=== PATIENT | female | born 1930 | race Caucasian/White ===

== ENCOUNTER 2016-10-13 17:41 | Inpatient (IN) | payer MEDICARE, BC ==
[2016-10-13] VITALS (13 sets, daily range): BP systolic 101–178; BP diastolic 53–124
[~2016-10-13] VITALS: Ht 152.4 cm; Wt 53.5 kg
[2016-10-13] MEDS ORDERED: IV SET PRIMARY 1 EA INFUS.SET MC ONE (17:47)
[2016-10-13] MEDS ORDERED: IV NS 0.9% 1,000 ML ONE ×2 (17:47→19:30)
--- NOTE | 2016-10-13 17:51 | NUR ---
DR. CARDOZA AT BEDSIDE FOR RAPID SEQUENCE INTUBATION WITH MONO FRASER
--- NOTE | 2016-10-13 17:52 | NUR ---
VERBAL ORDER FROM DR. CARDOZA FOR ETOMIDATE 20MG TO L WRIST G 22 FOR RSI VERBAL ORDER FROM DR. CARDOZA FOR ROCURONIUM 60MG TO L WRIST G 22 FOR RSI
--- NOTE | 2016-10-13 17:52 | NUR ---
PT INTUBATED BY DR. CARDOZA WITH 7.5ET TUBE AT 22CM LIP LINE POSITIVE CO2 COLOR CHANGE NOTED WITH BILATERAL BREATH SOUNDS RT TO PLACE PATIENT ON VENT WITH SETTINGS FOLLOWS: A/C: 20 TV: 500 PEEP:5 FIO2:100%
[2016-10-13] MEDS ORDERED: PROPOFOL 100 ML IV ONE (17:55)
[2016-10-13] MEDS ORDERED: IV SET PRIMARY PUMP SET 1 EA INFUS.SET MC ONE (17:55)
[2016-10-13] MEDS ORDERED: ALBUTEROL FS 2.5 MG/0.5 ML VIAL.NEB NEB ONE (18:00)
[2016-10-13] MEDS ORDERED: IPRATROPIUM NEB FS 0.5 MG/2.5 ML AMPUL.NEB NEB ONE (18:00)
--- NOTE | 2016-10-13 18:00 | NUR ---
CALLED [facility], ASKED THEM TO GIVE MEDLIST, CHANTELL (MED REC NURSE)GETTING MEDS FROM NURSE
[2016-10-13 18:09] LABS: BASOPHILS # (AUTO) 0.3 /CMM (0.0-0.2); BASOPHILS % (AUTO) 1.6 % (0.0-2.0); EOSINOPHILS # (AUTO) 0.8 /CMM (0.0-0.7); EOSINOPHILS % (AUTO) 4.8 % (0.0-6.0); HEMATOCRIT 41 % (33-45); HEMOGLOBIN 13.1 g/dL (11.5-14.8); LYMPHOCYTES # (AUTO) 3.7 /CMM (0.8-4.8); LYMPHOCYTES % (AUTO) 23.2 % (20.0-44.0); MEAN CORPUSCULAR HEMOGLOBIN 28 PG (26.0-33.0); MEAN CORPUSCULAR HGB CONC 32 g/dl (31.0-36.0); MEAN CORPUSCULAR VOLUME 88 fL (82-100); MONOCYTES # (AUTO) 1.3 /CMM (0.1-1.30); MONOCYTES % (AUTO) 8.5 % (2.0-12.0); NEUTROPHILS # (AUTO) 9.7 /CMM (1.8-8.9); NEUTROPHILS % (AUTO) 61.9 % (43.0-81.0); PLATELET COUNT (AUTO) 667 /CMM (150-450); RDW COEFFICIENT OF VARIATION 16.4 (11.5-15.0); RED BLOOD CELL COUNT(AUTO) 4.67 MIL/uL (4.0-5.2); WHITE BLOOD COUNT (AUTO) 15.8 K/uL (4.3-11.0)
--- NOTE | 2016-10-13 18:10 | NUR ---
RECEIVED VERBAL ORDERS FROM DR. CARDOZA TO START PT ON PROPOFOL.ORDERS CARRIED OUT STARTED AT 10MCG. VSS. WILL CLOSELY MONITOR.
[2016-10-13 18:14] LABS: CALCIUM, SERUM 9.4 mg/dL (8.5-10.1); CARBON DIOXIDE 13 mmol/L (21-32); CHLORIDE 104 mmol/L (98-107); CREATININE 1.5 mg/dL (0.6-1.3); GLUCOSE 165 mg/dL (74-106); POTASSIUM 4.3 mmol/L (3.5-5.1); SODIUM SERUM 138 mmol/L (136-145); UREA NITROGEN, BLOOD 18 mg/dL (7-18)
--- NOTE | 2016-10-13 18:16 | NUR ---
CALLED NURSING SUP. FOR ICU BED
[2016-10-13 18:18] LABS: INR 1.04 (0.87-1.13); PROTHROMBIN TIME 10.8 SECS (9.5-12.7)
[2016-10-13 18:20] LABS: ALANINE AMINOTRANSFERASE 64 U/L (12-78); ALBUMIN 2.3 g/dL (3.4-5.0); ALKALINE PHOSPHATASE 169 U/L (46-116); ASPARTATE AMINOTRANSFERASE 55 U/L (15-37); BILIRUBIN,DIRECT 0.1 mg/dL (0.0-0.2); BILIRUBIN,TOTAL 0.2 mg/dL (0.2-1.0); TOTAL PROTEIN, SERUM 7.1 g/dL (6.4-8.2)
[2016-10-13 18:22] LABS: TROPONIN I < 0.017 ng/mL (0.00-0.056)
--- NOTE | 2016-10-13 18:24 | NUR ---
RT ASSITED W/ DR CARDOZA TO ORALLY INTUBATE PT W/ 7.5 ETT MARKED 21 CM @ THE LIP. POSITIVE CO2 COLOR CHANGE. EQUAL BILATERAL B/S. PLACED ON VENT W/ NOTED SETTINGS BY DR BENJAMIN,ALARMS CHECKED AND AUDIBLE,VENT PLUGGED IN RED OUTLET. AMBU BAG HOB. ABG IN [address] CARDOZA. Addendum: 10/13/16 at 1826 by TR COHN RT Amended: Links added.
[2016-10-13] MEDS ORDERED: PIPERACILLIN /TAZOBACTAM 3.375 G in IV D5W 50 ML IV ONE (18:30)
[2016-10-13] MEDS ORDERED: VANCOMYCIN 1 GM in IV D5W 250 ML IV ONE ×2 (18:30→20:00)
--- NOTE | 2016-10-13 18:30 | NUR ---
UNABLE TO INSERT FC. DR. SONY SAM.
[2016-10-13 18:44] LABS: BAND % (MANUAL) 3 % (0.0-5.0); EOSINOPHILS % (MANUAL) 4 % (0-4); LACTIC ACID 11.9 mmol/L (0.4-2.0); LYMPHOCYTES % (MANUAL) 21 % (16-48); MONOCYTES % (MANUAL) 6 % (0-11.0); NEUTROPHILS % (MANUAL) 66 (42-76); PLATELET ESTIMATE INCREASED
--- NOTE | 2016-10-13 18:45 | NUR ---
RECEIVED VERBAL ORDERS FROM DR. CARDOZA TO DC PROPOFOL AND PLACED PT ON SOFT WRIST RESTRAINTS. ORDERS CARRIED OUT. SAFETY MEASURES PROVIDED. VSS. WILL MONITOR.
--- NOTE | 2016-10-13 19:06 | NUR ---
EPIC PAGED, DR.SIMONA Wynne BANKRUPTCY MANAGER
[2016-10-13] MEDS ORDERED: MAGN400O6 NG (19:15)
[2016-10-13] MEDS ORDERED: BISA10SU8 RC (19:15)
[2016-10-13] MEDS ORDERED: ATOR10TA NG (19:15)
[2016-10-13] MEDS ORDERED: CRAN3875 NG (19:15)
[2016-10-13] MEDS ORDERED: LEVO125T8 NG (19:15)
[2016-10-13] MEDS ORDERED: IPRA3AMP NEB (19:15)
[2016-10-13] MEDS ORDERED: CLOP75TA2 GT (19:15)
[2016-10-13] MEDS ORDERED: NA P133E RC (19:15)
[2016-10-13] MEDS ORDERED: CALC-108 NG (19:15)
[2016-10-13] MEDS ORDERED: ASPI81TA2 NG (19:15)
[2016-10-13] MEDS ORDERED: ACET-868 NG (19:15)
[2016-10-13] MEDS ORDERED: ZOLP5TAB2 NG (19:15)
[2016-10-13] MEDS ORDERED: AMOX200S6 NG (19:15)
--- NOTE | 2016-10-13 19:21 | NUR ---
REPORT GIVEN TO MADDIE ENGEL FOR ICU ROOM 258
[2016-10-13] MEDS ORDERED: IV NS 0.9% 1,000 ML BAG IV ONE ×2 (19:30→20:00)
--- NOTE | 2016-10-13 19:40 | NUR ---
ICU/RN- PT BROUGHT IN FROM ER W/ DX OF RESP FAILURE AND SEPSIS. PT IS SEDATED AND ORALLY INTUBATED W/ ETT 7.5/22AC 20 TV 500 FIO2 100% P 5. TOLERATING WELL. NO S/SX OF RESP DISTRESS NOTED. ON MONITOR W/ SR 90'S. R CYNTHIA ORTIZ PRESENT. AUSCULTATED FOR + PLACEMENT. CLAMPED. HL IN L HAND 24 AND R WRIST 18 PATENT AND INTACT W/ NS IVB INFUSING FROM THE ER. NOTED UROSTOMY IN RLQ OF ABD. NOTED YELLOW MUCOID URINE. WILL MONITOR. BED LOW AND IN LOCKED POSITION. WILL MONITOR PT ACCORDINGLY. Addendum: 10/14/16 at 0639 by MADDIE MENSAH RN Mabel ORTIZ
[2016-10-13] MEDS: ALBUTEROL FS 2.5 MG/3 ML VIAL.NEB NEB SCH ×2 (20:00→23:55)
[2016-10-13] MEDS ORDERED: NA PHOS,M-B/NA PHOS,DI-BA 1 EA ENEMA RC PRN (20:00)
[2016-10-13] MEDS ORDERED: ONDANSETRON HCL/PF 4 MG/2 ML VIAL IVP PRN (20:00)
[2016-10-13] MEDS ORDERED: MAGNESIUM HYDROXIDE 30 ML UDC NG PRN (20:00)
[2016-10-13] MEDS ORDERED: BISACODYL SUPP (10 MG) 10 MG/SUPP.RECT SUPP.RECT RC PRN (20:00)
--- NOTE | 2016-10-13 20:00 | NUR ---
ICU/RN- ATTEMPTED INSERTING DIAZ CATHETER PER DR JENY SILVA'S ORDER. UNABLE TO INSERT DIAZ CATHETER DUE TO ATYPICAL ANATOMY. INFORMED CHARGE NURSE TORO DURAN STATED THAT SHE WILL TRY TO INSERT IN A LATER TIME.
[2016-10-13] MEDS ORDERED: FEE PK DOSING 1 MIN EA MC ONE (20:13)
[2016-10-13] MEDS ORDERED: ETOMIDATE 2 MG/ML VIAL IV ONE (20:16)
[2016-10-13] MEDS ORDERED: ROCURONIUM BROMIDE 50 MG/5 ML IV ONE (20:16)
[2016-10-13] MEDS: methylPREDNISolone SOD SUCC 125 MG/2ML VIAL IV SCH (20:29)
[2016-10-13 20:55] LABS: LACTIC ACID 2.6 mmol/L (0.4-2.0)
--- NOTE | 2016-10-13 21:00 | NUR ---
ICU/RN- TORO DURAN UNABLE TO INSERT DIAZ CATHETER AT THIS TIME.
[2016-10-13 21:27] LABS: ABG BASE EXCESS -15.6 mmol/L; ABG OXYGEN SATURATION 96.8 % (92.0-98.5); ABG PCO2 35.5 mmHg (35.0-45.0); ABG PH 7.154 (7.350-7.450); ABG PO2 117.2 mmHg (75.0-100.0); AaDO2 560.3 mmHg; COHb 0.3 % (0.5-1.5); MetHb 0.5 % (0.0-1.5); PEEP,BG 5 cm H2O; SITE, ABG Left Brachial; VT, ABG 500 mL
[2016-10-13] MEDS: ATORVASTATIN 10 MG TABLET NG SCH (21:36)
--- NOTE | 2016-10-13 22:15 | NUR ---
ICU/RN- LAB REPORTED DEVELOPED A SKIN TEAR WHILE PERFORMING LAB DRAW. PICTURES TAKE. SKIN TEAR IS 9X1 CM. PICTURE TAKEN. APPLIED STERI STRIPS AND TELFA DRESSING AND WRAPPED W/ KERLIX .GAUZE
[2016-10-14] VITALS (54 sets, daily range): BP systolic 92–184; BP diastolic 37–135
[2016-10-14] MEDS ORDERED: PIPERACILLIN /TAZOBACTAM 3.375 G in IV D5W 50 ML IV SCH ×2
[2016-10-14] MEDS ORDERED: SECONDARY IV SET 1 EA INFUS.SET MC ONE (00:21)
[2016-10-14] MEDS: PIPERACILLIN /TAZOBACTAM 2.25 G in IV D5W 50 ML IV SCH ×5 (00:30→23:10)
--- NOTE | 2016-10-14 02:24 | NUR ---
ICU/RN- NOTED THAT PT'S VITALS HAS INCREASED. HR 105 AND 161/86 RR 32. PRN MORPHINE 2MG IVP GIVEN FOR PAIN. TOLERATED WELL. NO S/SX OF ADVERSE REACTION NOTED.
[2016-10-14] MEDS: ALBUTEROL FS 2.5 MG/3 ML VIAL.NEB NEB SCH ×6 (03:33→23:41)
[2016-10-14] MEDS: ACETAMINOPHEN 325 MG TABLET PO PRN ×2 (04:31→10:51)
--- NOTE | 2016-10-14 04:35 | NUR ---
ICU/RN- PT TEMP IS 103.0, COOLING MEASURES RENDERED. PRN TYLENOL 650 MG GIVEN PRN FOR FEVER. WILL MONITOR TEMP.
[2016-10-14 05:18] LABS: TROPONIN I 0.037 ng/mL (0.00-0.056)
[2016-10-14 05:24] LABS: ALBUMIN 2.3 g/dL (3.4-5.0); BILIRUBIN,TOTAL 0.3 mg/dL (0.2-1.0); CALCIUM, SERUM 8.2 mg/dL (8.5-10.1); CREATININE 1.4 mg/dL (0.6-1.3); TOTAL PROTEIN, SERUM 6.9 g/dL (6.4-8.2)
[2016-10-14 05:26] LABS: BASOPHILS % (AUTO) 0.1 % (0.0-2.0); EOSINOPHILS % (AUTO) 0.1 % (0.0-6.0); HEMATOCRIT 38 % (33-45); HEMOGLOBIN 12.3 g/dL (11.5-14.8); LYMPHOCYTES # (AUTO) 0.9 /CMM (0.8-4.8); LYMPHOCYTES % (AUTO) 6.8 % (20.0-44.0); MEAN CORPUSCULAR HEMOGLOBIN 28 PG (26.0-33.0); MEAN CORPUSCULAR HGB CONC 32 g/dl (31.0-36.0); MEAN CORPUSCULAR VOLUME 86 fL (82-100); MONOCYTES # (AUTO) 0.3 /CMM (0.1-1.30); MONOCYTES % (AUTO) 2.3 % (2.0-12.0); NEUTROPHILS # (AUTO) 12.1 /CMM (1.8-8.9); NEUTROPHILS % (AUTO) 90.7 % (43.0-81.0); PLATELET COUNT (AUTO) 578 /CMM (150-450); RDW COEFFICIENT OF VARIATION 16.3 (11.5-15.0); RED BLOOD CELL COUNT(AUTO) 4.43 MIL/uL (4.0-5.2); WHITE BLOOD COUNT (AUTO) 13.3 K/uL (4.3-11.0)
[2016-10-14 05:34] LABS: INR 1.03 (0.87-1.13)
--- NOTE | 2016-10-14 06:33 | NUR ---
ICU/RN- PT TEMP IS 102.2 [address] COOLING MEASURES IN PLACE. WILL CONT TO MONITOR TEMP. COOLING BLANKET WAS ORDERED.
--- NOTE | 2016-10-14 07:30 | NUR ---
RN NOTES RECEIVED PT LAYING IN BED, PT NOT RESPONSIVE TO VERBAL AND TACTILE STIMULI, ETT 7.5CM 22CM ON THE LIP, ON [facility] VENT SETTINGS AC 20 TV 500 [id number]% PEEP 5. SUCTIONED FOR AIRWAY CLEARANCE. PT FEBRILE, TEMP 103.5, COOLING MEASURES MAINTAINED, FOLLOWED UP WITH CENTRAL SUPPLY FOR COOLING BLANKET. ST ON PUMP MECHANIC HR 119. PT NOTED WITH SKIN TEAR ON L ARM, FOR WOUND CONSULT. WITH IV SALINE LOCK LA HAND 22G AND R FA 22G. NOTED WITH UROSTOMY CONNECTED TO DRAINAGE BAG WITH LIGHT YELLOW URINE OUTPUT. PT CURRENTLY ON NPO, HAS L NARE DUBHUB TUBE, CHECKED POR PATENCY AND PLACEMENT. PT REPOSITIONED FOR COMFORT, SAFETY MAINTAINED, KEPT COMFORTABLE, CALL LIGHT WITHIN REACH, WILL CONT TO MONITOR.
--- NOTE | 2016-10-14 08:00 | NUR ---
RN NOTES COOLING BLANKET PROVIDED. PT STILL FEBRILE TEMP OF 103
--- NOTE | 2016-10-14 08:30 | NUR ---
RN NOTES DR LUNSFORD AT BEDSIDE, REPORTED CURRENT PT CONDITION.
[2016-10-14] MEDS ORDERED: Medication Not On Formulary EA (Cran/Vitc/Mannose/Inulin/Brom (Uti-Stat Liquid) 30 ML) NG SCH (09:00)
[2016-10-14] MEDS: CLOPIDOGREL BISULFATE 75 MG TABLET GT SCH (09:01)
[2016-10-14] MEDS: CALCIUM CARB 600MG /VIT D 1 EACH TABLET NG SCH (09:01)
[2016-10-14] MEDS: ASPIRIN 81 MG TAB.CHEW NG SCH (09:01)
[2016-10-14] MEDS: LEVOTHYROXINE SODIUM 125 MCG TABLET NG SCH (09:01)
[2016-10-14] MEDS: PANTOPRAZOLE 40 MG VIAL IV SCH (09:01)
[2016-10-14] MEDS: methylPREDNISolone SOD SUCC 125 MG/2ML VIAL IV SCH (09:01)
--- NOTE | 2016-10-14 09:10 | NUR ---
RN NOTES DR KELSEY AT BEDSIDE, REPORTED CURRENT PT CONDITION, PT STILL FEBRILE.
[2016-10-14 09:14] LABS: ABG OXYGEN SATURATION 96.7 % (92.0-98.5); ABG PCO2 25.8 mmHg (35.0-45.0); ABG PO2 93.2 mmHg (75.0-100.0); ABG TOTAL HEMOGLOBIN 12.4 G/dL (12.0-16.0); AaDO2 409.3 mmHg; MetHb 0.9 % (0.0-1.5); O2Hb 94.9 % (94.0-97.0); PEEP,BG 5 cm H2O; SITE, ABG Right Radial; VT, ABG 500 mL
--- NOTE | 2016-10-14 09:30 | NUR ---
RN NOTES CONOR SUPERVISOR WRAPPING ROOM AT BEDSIDE, REPORTED CURRENT PT CONDITION, PT STILL FEBRILE TEMP 104 AND NOT RELIEVED BY TYLENOL AND COOLING MEASURE, PT TACHYCARDIC HR 130.S AT THIS TIME. ALL CURRENT LAB VALUES REPORTED AND CURRENT ABG RESULT REPORTED. CONOR MADE NEW ORDERS AND PER CONOR AWAITING FOR ID CONSULT.
--- NOTE | 2016-10-14 09:46 | NUR ---
WOUND CARE CONSULT: PT PRESENTS WITH MULTIPLE SKIN ISSUES INCLUDING SACRAL ULCER, STAGE II, PRESENT ON ADMISSION WELL RASH TO BUTTOCKS AND PERINEUM, SKIN TEAR TO LEFT ARM. PT HAS FEVER AND IS IMMOBILE, INTUBATED. FIRST STEP MATTRESS ORDERED. PT ON COOLING BLANKET AT THIS TIME. ALL SKIN PROTECTION MEASURES IN PLACE. DISCUSSED WITH NURSING STAFF. MD IN AGREEMENT WITH PLAN OF CARE. Addendum: 10/14/16 at 0947 by KULDIP ZEPEDA WNDNU Amended: Links added.
[2016-10-14] MEDS ORDERED: HYDROGEL DRESSING 90 GM TUBE TP PRN (10:00)
--- NOTE | 2016-10-14 10:00 | NUR ---
RN NOTES DR VELASQUEZ AT BEDSIDE, REPORTED PT CURRENT CONDITION, STILL FEBRILE, ALL COOLING MEASURES PROVIDED. DR VELASQUEZ MADE NEW ORDERS.
[2016-10-14] MEDS: IV NS 0.9% 1,000 ML IV PRN (10:04)
[2016-10-14] MEDS: Z GUARD REMEDY 2 OZ OINT TP SCH (10:13)
[2016-10-14] MEDS: HYDROGEL DRESSING 90 GM TUBE TP SCH (10:13)
[2016-10-14] MEDS: LEVOFLOXACIN 500 MG /D5W 100ML 500 MG in PREMIX 1 EA IV SCH (10:49)
[2016-10-14 11:33] LABS: APPEARANCE,URINE CLEAR (CLEAR); BILIRUBIN,URINE NEGATIVE (NEGATIVE); BLOOD, URINE 1+ Ery/uL (NEGATIVE); COLOR,URINE YELLOW (YELLOW); KETONES,URINE NEGATIVE (NEGATIVE); LEUKOCYTE ESTERASE ,URINE NEGATIVE (NEGATIVE); NITRITE, URINE NEGATIVE (NEGATIVE); PROTEIN,URINE NEGATIVE (NEGATIVE); UGLUCOSE NEGATIVE (NEGATIVE); UROBILINOGEN,URINE 0.2 EU/dL (0.2)
[2016-10-14 11:36] LABS: ADD URINE CULTURE NO; BACTERIA,URINE None seen /HPF (None Seen); SQUAMOUS EPITHELIAL CELL,UR None Seen /HPF (None Seen); WBC,URINE 0-2 /HPF (0-3)
[2016-10-14] MEDS: MORPHINE SULFATE INJ 2 MG/ML DISP.SYRIN IV PRN (11:37)
[2016-10-14] MEDS: LORAZEPAM INJ 2 MG/ML VIAL IVP PRN (13:38)
--- NOTE | 2016-10-14 14:05 | NUR ---
RN NOTES PT'S TEMP NOTED 99.5 AT THIS TIME
[2016-10-14] MEDS ORDERED: VANCOMYCIN 0.75 GM in IV D5W 250 ML IV SCH (17:00)
--- NOTE | 2016-10-14 17:00 | NUR ---
RN NOTES RECEIVED A CALL FROM LIDA GARBER, PER JCARLOS SHE WILL COME LATER. GUILLE BARBER SPOKE WITH JCARLOS HILTON WELL.
[2016-10-14] MEDS: methylPREDNISolone SOD SUCC 40 MG/ML VIAL IV SCH (17:14)
[2016-10-14] MEDS: LACTOBACILLUS RHAMNOSUS GG 1 EACH CAP.SPRINK GT SCH (17:14)
--- NOTE | 2016-10-14 20:39 | NUR ---
received pt from day shift, obtunded, responds to pain stimuli only, SR, on the vent, lungs diminished, no edema, NG clamped, urostomy low urine output, NPO, v/s stable, no pain, pt turned and repositioned. family at the bedside Status changed to DNR Dr Tamar Paige notified.
[2016-10-14] MEDS: ATORVASTATIN 10 MG TABLET NG SCH (21:27)
--- NOTE | 2016-10-14 21:46 | NUR ---
PT RECEIVED INTUBATED ON VENT WITH 7.5 ETT SECURED AT 23CM AT THE LIP. NO RESP DISTRESS PT TOLERATING VENT SETTINGS. SX'D FOR SML AMT OF THICK WHITE SECRETIONS. VENT ALARMS SET AND AUDIBLE. AMBU BAG AT BEDSIDE. VENT PLUGGED INTO RED OUTLET. Addendum: 10/14/16 at 2148 by RYAN SHELTON RT Amended: Links added.
[2016-10-15] VITALS (65 sets, daily range): BP systolic 88–166; BP diastolic 18–123
--- NOTE | 2016-10-15 00:24 | NUR ---
pt is resting in the bed, v/s stable, no pain, pt turned and repositioned q2hrs.
[2016-10-15] MEDS: IV NS 0.9% 1,000 ML IV PRN ×2 (00:59→11:57)
[2016-10-15] MEDS: ALBUTEROL FS 2.5 MG/3 ML VIAL.NEB NEB SCH ×6 (03:36→23:18)
--- NOTE | 2016-10-15 04:12 | NUR ---
pt is resting in the bed, lethargic, does not follow commands, SR, v/s stable, no pain, pt cleaned, changed and repositioned q2hrs.
[2016-10-15 04:51] LABS: BASOPHILS % (AUTO) 0.2 % (0.0-2.0); CALCIUM, SERUM 8.5 mg/dL (8.5-10.1); CREATININE 1.8 mg/dL (0.6-1.3); HEMATOCRIT 36 % (33-45); HEMOGLOBIN 11.7 g/dL (11.5-14.8); LYMPHOCYTES # (AUTO) 1.6 /CMM (0.8-4.8); LYMPHOCYTES % (AUTO) 8.9 % (20.0-44.0); MEAN CORPUSCULAR HEMOGLOBIN 28 PG (26.0-33.0); MEAN CORPUSCULAR HGB CONC 33 g/dl (31.0-36.0); MEAN CORPUSCULAR VOLUME 86 fL (82-100); MONOCYTES # (AUTO) 1.4 /CMM (0.1-1.30); MONOCYTES % (AUTO) 7.7 % (2.0-12.0); NEUTROPHILS # (AUTO) 15.3 /CMM (1.8-8.9); NEUTROPHILS % (AUTO) 83.2 % (43.0-81.0); PLATELET COUNT (AUTO) 493 /CMM (150-450); RDW COEFFICIENT OF VARIATION 16.1 (11.5-15.0); RED BLOOD CELL COUNT(AUTO) 4.17 MIL/uL (4.0-5.2); WHITE BLOOD COUNT (AUTO) 18.4 K/uL (4.3-11.0)
[2016-10-15] MEDS: PIPERACILLIN /TAZOBACTAM 2.25 G in IV D5W 50 ML IV SCH ×3 (05:00→21:40)
--- NOTE | 2016-10-15 07:05 | NUR ---
RN INITIAL NOTES RECEIVED PT [facility]UBATED, [facility] WITH FF SETTINGS: AC20, TV500, [id number]%, PEEP+5. HOB ELEVATED. NO RESPIRATORY DISTRESS NOTED. NO SOB NOTED. NO SIGNS OF PAIN NOTED. NGT IN PLACE, CLAMPED. IV LINES IN PLACE. ON NS AT 100ML/HR. RIGHT UROSTOMY IN PLACE. NO HEMATURIA NOR SEDIMENTS NOTED. BLE ELEVATED. WILL CONTINUE TO MONITOR.
[2016-10-15] MEDS: methylPREDNISolone SOD SUCC 40 MG/ML VIAL IV SCH (08:23)
[2016-10-15] MEDS: PANTOPRAZOLE 40 MG VIAL IV SCH (08:23)
[2016-10-15] MEDS: LACTOBACILLUS RHAMNOSUS GG 1 EACH CAP.SPRINK GT SCH ×2 (08:24→16:13)
[2016-10-15] MEDS: Z GUARD REMEDY 2 OZ OINT TP PRN (08:24)
[2016-10-15] MEDS: CLOPIDOGREL BISULFATE 75 MG TABLET GT SCH (08:24)
[2016-10-15] MEDS: ASPIRIN 81 MG TAB.CHEW NG SCH (08:24)
[2016-10-15] MEDS: ACETAMINOPHEN 325 MG TABLET PO PRN (08:24)
[2016-10-15] MEDS: LEVOTHYROXINE SODIUM 125 MCG TABLET NG SCH (08:24)
[2016-10-15] MEDS: HYDROGEL DRESSING 90 GM TUBE TP SCH (08:24)
[2016-10-15] MEDS: CALCIUM CARB 600MG /VIT D 1 EACH TABLET NG SCH (08:24)
[2016-10-15] MEDS: Z GUARD REMEDY 2 OZ OINT TP SCH (08:25)
--- NOTE | 2016-10-15 08:30 | NUR ---
RN NOTES SEEN AND EXAMINED BY CONOR ZAYAS. AWARE OF CURRENT VENT SETTINGS. AWARE OF CURRENT LAB RESULTS: WBC 18.4. LATEST TEMP 99.6, HGB 11.7, HCT 36, PLATELET 493. SODIUM 134, POTASSIUM 6, UN 40, CREA 1.8. ALSO AWARE OF CXR RESULT. PER AUTO GARAGE MECHANIC, WILL TAKE A LOOK AT PT'S PROFILE. AWAITING FOR ORDER/S.
--- NOTE | 2016-10-15 08:40 | NUR ---
RN NOTES SEEN AND EXAMINED BY DR. LUNSFORD. AWARE OF CURRENT VENT SETTINGS, LAB AND CXR RESULTS. NOTIFIED PT'S CODE STATUS, DNR AND NO PRESSORS PER DPOA. PT OPENS EYES TO TACTILE AND PAINFUL STIMULI., DOESN'T TRACK. NO SEDATION. NO ORDER MADE AT THIS TIME. Addendum: 10/15/16 at 1038 by ERIC CEDENO RN 0945 DR. LUNSFORD ORDERED TO ADVANCE ETT 2CM. NOTED AND CARRIED OUT. YENNI RT NOTIFIED. AWARE OF ABG RESULT, WILL DECREASE FI02 TO 40%. WILL CLOSELY MONITOR .
[2016-10-15] MEDS ORDERED: SODIUM POLYSTYRENE SULFONATE 15 G/60 ML BOTTLE PO ONE (09:00)
--- NOTE | 2016-10-15 09:30 | NUR ---
RN NOTES SEEN AND EXAMINED BY DR. ANCELMO KELSEY. AWARE OF LAB VALUES: WBC 18.4, HGB 11.7, HCT 36, SODIUM 134, POTASSIUM 6, GIVEN KAYEXALATE. BUN 40, CREA 1.8. UROSTOMY IN PLACE. URINE OUTPUT MONITORED. NO ORDER MADE AT THIS TIME.
[2016-10-15 09:53] LABS: ABG BASE EXCESS -10.5 mmol/L; ABG OXYGEN SATURATION 98.8 % (92.0-98.5); ABG PCO2 24.6 mmHg (35.0-45.0); ABG PH 7.355 (7.350-7.450); ABG PO2 252.1 mmHg (75.0-100.0); ABG TOTAL HEMOGLOBIN 11.1 G/dL (12.0-16.0); AaDO2 148.6 mmHg; COHb 0.4 % (0.5-1.5); MetHb 0.9 % (0.0-1.5); O2Hb 97.5 % (94.0-97.0); PEEP,BG 5 cm H2O; SITE, ABG Right Radial; VT, ABG 500 mL
--- NOTE | 2016-10-15 11:11 | NUR ---
et tube advanced to 25cm
[2016-10-15] MEDS ORDERED: SECONDARY IV SET 1 EA INFUS.SET MC ONE (16:11)
[2016-10-15] MEDS ORDERED: VANCOMYCIN 500 MG in IV D5W 100 ML IV SCH (17:00)
--- NOTE | 2016-10-15 18:40 | NUR ---
RN CLOSING NOTES PT REMAINS INTUBATED. [facility], TOLERATING WELL. NO RESPIRATORY DISTRESS NOTED. KEPT HOB ELEVATED. NO SIGNS OF PAIN NOTED. NGT IN PLACE. IV LINES IN PLACE. TOLERATING IVF WELL. UROSTOMY IN PLACE. NO HEMATURIA NOTED. KEPT CLEAN AND DRY. TX PROVIDED ORDERED. REPOSITIONED Q2. KEPT BLE ELEVATED. PT COMFORTABLE. WILL ENDORSE FOR CONTINUITY OF CARE.
--- NOTE | 2016-10-15 20:37 | NUR ---
received pt from day shift, drowsy/lethargic, follows simple commands, SR, on the vent, lungs hyperinflated, NG clamped, urostomy good output, NPO, v/s stable, no pain, pt turned and repositioned.
[2016-10-15 21:38] LABS: APPEARANCE,URINE CLEAR (CLEAR); BILIRUBIN,URINE NEGATIVE (NEGATIVE); BLOOD, URINE 2+ Ery/uL (NEGATIVE); COLOR,URINE YELLOW (YELLOW); KETONES,URINE NEGATIVE (NEGATIVE); LEUKOCYTE ESTERASE ,URINE NEGATIVE (NEGATIVE); NITRITE, URINE NEGATIVE (NEGATIVE); PROTEIN,URINE TRACE mg/dl (NEGATIVE); UGLUCOSE NEGATIVE (NEGATIVE); UROBILINOGEN,URINE 0.2 EU/dL (0.2)
[2016-10-15] MEDS: ATORVASTATIN 10 MG TABLET NG SCH (21:40)
[2016-10-15 21:46] LABS: CREATININE, URINE 38.3 MG/DL (30.0-125.0)
[2016-10-15 21:52] LABS: ADD URINE CULTURE NO; BACTERIA,URINE FEW /HPF (None Seen); SQUAMOUS EPITHELIAL CELL,UR None Seen /HPF (None Seen); YEAST,URINE Few /HPF (None Seen)
[2016-10-16] VITALS (54 sets, daily range): BP systolic 91–151; BP diastolic 24–125
--- NOTE | 2016-10-16 00:39 | NUR ---
pt is resting in the bed, more awake but still drowsy, confused, follows simple commands, v/s stable, no pain, pt turned and repositioned q2hrs.
[2016-10-16] MEDS: IV NS 0.9% 1,000 ML IV PRN ×3 (01:10→21:00)
[2016-10-16] MEDS: ALBUTEROL FS 2.5 MG/3 ML VIAL.NEB NEB SCH ×6 (03:52→23:03)
--- NOTE | 2016-10-16 04:21 | NUR ---
pt is resting in the bed, drowsy, confused, follows simple commands, SR, v/s stable, no pain, pt cleaned, changed and repositioned q2hrs.
[2016-10-16] MEDS: PIPERACILLIN /TAZOBACTAM 2.25 G in IV D5W 50 ML IV SCH ×3 (04:39→21:00)
[2016-10-16 05:08] LABS: BASOPHILS % (AUTO) 0.2 % (0.0-2.0); EOSINOPHILS % (AUTO) 0.2 % (0.0-6.0); HEMATOCRIT 28 % (33-45); HEMOGLOBIN 9.3 g/dL (11.5-14.8); LYMPHOCYTES # (AUTO) 2.5 /CMM (0.8-4.8); MEAN CORPUSCULAR HEMOGLOBIN 29 PG (26.0-33.0); MEAN CORPUSCULAR HGB CONC 34 g/dl (31.0-36.0); MEAN CORPUSCULAR VOLUME 86 fL (82-100); MONOCYTES # (AUTO) 1.8 /CMM (0.1-1.30); MONOCYTES % (AUTO) 10.7 % (2.0-12.0); NEUTROPHILS # (AUTO) 12.2 /CMM (1.8-8.9); NEUTROPHILS % (AUTO) 73.9 % (43.0-81.0); PLATELET COUNT (AUTO) 402 /CMM (150-450); RED BLOOD CELL COUNT(AUTO) 3.21 MIL/uL (4.0-5.2); WHITE BLOOD COUNT (AUTO) 16.5 K/uL (4.3-11.0)
[2016-10-16 05:17] LABS: CALCIUM, SERUM 7.8 mg/dL (8.5-10.1); CREATININE 1.5 mg/dL (0.6-1.3); MAGNESIUM 1.8 mg/dL (1.8-2.4); POTASSIUM 3.9 mmol/L (3.5-5.1)
--- NOTE | 2016-10-16 07:05 | NUR ---
RN INITIAL NOTES RECEIVED PT AWAKE, A/OX1. NO RESPIRATORY DISTRESS NOTED. NO SOB NOTED. INTUBATED. [facility] WITH FF SETTINGS: AX20, TV500, FI02 40%, PEEP +5. HOB ELEVATED. NO SIGNS OF PAIN NOTED. NGT IN PLACE. NICOLLE MIDLINE IN PLACE. ON IVF. UROSTOMY IN PLACE. WILL MONITOR OUTPUT. BLE ELEVATED. WILL CONTINUE TO MONITOR.
[2016-10-16] MEDS: PANTOPRAZOLE 40 MG VIAL IV SCH (08:05)
[2016-10-16] MEDS: CALCIUM CARB 600MG /VIT D 1 EACH TABLET NG SCH (08:05)
[2016-10-16] MEDS: CLOPIDOGREL BISULFATE 75 MG TABLET GT SCH (08:05)
[2016-10-16] MEDS: ASPIRIN 81 MG TAB.CHEW NG SCH (08:05)
[2016-10-16] MEDS: HYDROGEL DRESSING 90 GM TUBE TP SCH (08:05)
[2016-10-16] MEDS: LACTOBACILLUS RHAMNOSUS GG 1 EACH CAP.SPRINK GT SCH ×2 (08:05→16:15)
[2016-10-16] MEDS: Z GUARD REMEDY 2 OZ OINT TP SCH (08:05)
[2016-10-16] MEDS: LEVOTHYROXINE SODIUM 125 MCG TABLET NG SCH (08:05)
--- NOTE | 2016-10-16 08:30 | NUR ---
RN NOTES SEEN AND EXAMINED BY CONOR ZAYAS NP. NOTIFIED THAT PT IS MORE AWAKE, A/OX1, FOLLOWS SIMPLE COMMANDS. AWARE OF LAB VALUES AND CXR RESULTS. WBC 16.5, AFEBRILE. HGB 9.3, HCT 28, PLATELET 402. SODIUM 140, POTASSIUM 3.9, BUN 40, CREA 1.5. OYSTER GRADER ORDERED LABS AND STOOL FOR OB. NOTED AND CARRIED OUT.
[2016-10-16 09:11] LABS: INR 1.17 (0.87-1.13); PROTHROMBIN TIME 12.7 SECS (9.5-12.7)
[2016-10-16] MEDS: LEVOFLOXACIN 500 MG /D5W 100ML 500 MG in PREMIX 1 EA IV SCH (10:00)
--- NOTE | 2016-10-16 10:00 | NUR ---
RN NOTES SEEN AND EXAMINED BY DR. VELASQUEZ. PT AFEBRILE. AWARE OF CURRENT LAB VALUES AND CXR RESULT. MD REVIEWED CURRENT MEDS WITH ORDERS NOTED AND CARRIED OUT.
--- NOTE | 2016-10-16 11:54 | NUR ---
RN NOTES SEEN AND EXAMINED BY DR. LUNSFORD. AWARE THAT PT IS MORE AWAKE, A/OX1. FOLLOWS SIMPLE COMMANDS. MD ORDERED WEANING TRIALS AT 1330. WILL MONITOR.
--- NOTE | 2016-10-16 13:30 | NUR ---
RN NOTES PT STARTED ON WEANING TRIALS. PLACED ON SIMV4, PS 12, PEEP +5. WILL CLOSELY MONITOR FOR S/SX OF RESPIRATORY DISTRESS. WILL NOTIFY DR. LUNSFORD.
[2016-10-16 14:39] LABS: ABG BASE EXCESS -12.5 mmol/L; ABG OXYGEN SATURATION 98.2 % (92.0-98.5); ABG PCO2 25.3 mmHg (35.0-45.0); ABG PH 7.307 (7.350-7.450); ABG PO2 181.8 mmHg (75.0-100.0); ABG TOTAL HEMOGLOBIN 9.2 G/dL (12.0-16.0); AaDO2 74.3 mmHg; COHb 0.2 % (0.5-1.5); MetHb 0.9 % (0.0-1.5); O2Hb 97.1 % (94.0-97.0); PEEP,BG 5 cm H2O; SITE, ABG Right Radial; VENT MODE, BG SIMV 4 / PS 12; VT, ABG 500 mL
--- NOTE | 2016-10-16 14:45 | NUR ---
RN NOTES DR. LUNSFORD IN THE UNIT. PT IS ON SIMV MODE, ABG DONE AND RESULT RELAYED TO DR. LUNSFORD. NO RESPIRATORY DISTRESS NOTED. PER MD, PUT PT BACK TO AC20, TV500, FI02 40%, PEEP +5. NOTED AND CARRIED OUT. WILL CONTINUE TO MONITOR.
[2016-10-16] MEDS: CITRIC ACID/SODIUM CITRATE (BICITRA)15 ML UDC PO SCH ×2 (16:14→21:00)
[2016-10-16] MEDS ORDERED: VANCOMYCIN 0.75 GM in IV D5W 250 ML IV SCH (18:00)
--- NOTE | 2016-10-16 18:32 | NUR ---
RN CLOSING NOTES PT REMAINS STABLE. ON MECH VENT. REMAINS INTUBATED. NO RESPIRATORY DISTRESS NOTED. KEPT HOB ELEVATED. NO SIGNS OF PAIN NOTED. NGT IN PLACE. IV LINES IN PLACE. TOLERATING IVF WELL. UROSTOMY INTACT. TX PROVIDED ORDERED. KEPT CLEAN AND DRY. REPOSITIONED Q2. KEPT BLE ELEVATED. WILL ENDORSE FOR CONTINUITY OF CARE.
--- NOTE | 2016-10-16 20:00 | NUR ---
Received on bed awake alert oriented to name and follows simple commands.Hand formula bottler strong.With bilateral soft wrist restraints on to prevent self extubation.Currently intubated to mechanical vent on ac mode.Maintained on same prescribed vent settings well tolerated. SPO2 100%.Suction small amount white secretions.oral care done.SR per monitor.Afebrile. Hemodynamically stable.NPO.NGT left nares placement verified and clamped.Right urostomy to gravity drainage draining clear yellow urine.Hydrated with NS via NICOLLE Midline and site intact. Turned and repositioned offloading pressure points.No distress noted.
[2016-10-16] MEDS: LORAZEPAM INJ 2 MG/ML VIAL IVP PRN (21:00)
--- NOTE | 2016-10-16 21:00 | NUR ---
2100 Patient friend visiting updated of patient status and plan of care.Patient became agitated and wants ET tube out explained to patient the purpose of ET Tube but remains agitated.Ativan given as PRN.Continue monitoring.
[2016-10-16] MEDS: ATORVASTATIN 10 MG TABLET NG SCH (22:01)
[2016-10-17] VITALS (41 sets, daily range): BP systolic 61–167; BP diastolic 30–149
[2016-10-17] MEDS: ALBUTEROL FS 2.5 MG/3 ML VIAL.NEB NEB SCH ×5 (03:42→20:25)
[2016-10-17 04:44] LABS: EOSINOPHILS # (AUTO) 0.3 /CMM (0.0-0.7); HEMATOCRIT 27 % (33-45); HEMOGLOBIN 8.9 g/dL (11.5-14.8); LYMPHOCYTES # (AUTO) 1.5 /CMM (0.8-4.8); LYMPHOCYTES % (AUTO) 10.8 % (20.0-44.0); MEAN CORPUSCULAR HEMOGLOBIN 28 PG (26.0-33.0); MEAN CORPUSCULAR HGB CONC 33 g/dl (31.0-36.0); MEAN CORPUSCULAR VOLUME 87 fL (82-100); MONOCYTES # (AUTO) 1.6 /CMM (0.1-1.30); MONOCYTES % (AUTO) 10.9 % (2.0-12.0); NEUTROPHILS # (AUTO) 10.9 /CMM (1.8-8.9); NEUTROPHILS % (AUTO) 76.3 % (43.0-81.0); PLATELET COUNT (AUTO) 365 /CMM (150-450); RDW COEFFICIENT OF VARIATION 16.5 (11.5-15.0); RED BLOOD CELL COUNT(AUTO) 3.14 MIL/uL (4.0-5.2); WHITE BLOOD COUNT (AUTO) 14.3 K/uL (4.3-11.0)
[2016-10-17] MEDS: PIPERACILLIN /TAZOBACTAM 2.25 G in IV D5W 50 ML IV SCH ×3 (04:47→21:46)
[2016-10-17 05:14] LABS: CALCIUM, SERUM 8.1 mg/dL (8.5-10.1); CREATININE 1.3 mg/dL (0.6-1.3); MAGNESIUM 1.5 mg/dL (1.8-2.4); POTASSIUM 3.5 mmol/L (3.5-5.1)
--- NOTE | 2016-10-17 06:00 | NUR ---
Patient resting appears comfortable.VS stable.SR.Am care done.No Bm noted.Remains NPO with IVF infusing well.Good urine output.No significant changed noted during the shift. Turned and repositioned.No distress noted.
--- NOTE | 2016-10-17 07:35 | NUR ---
ICU/RN - Notes Glucose 53 mg/dL noted on today's AM lab draw. Fingerstick blood glucose obtained with reading 60 mg/dL. Pt given orange juice via NGT. Will reassess blood sugar level.
--- NOTE | 2016-10-17 07:45 | NUR ---
ICU/RN - Initial Notes Received pt in bed awake with eyes open. Orally intubated to mechanical vent with settings as ordered. No s/s of respiratory distress. Appears restless. Pt able to follow simple commands. NG tube patent and intact. Urostomy noted to right lower abdomen with urine draining to gravity. IVF infusing well. Safety and comfort measures in place. Will continue to monitor pt closely.
[2016-10-17] MEDS ORDERED: IV SET PRIMARY PUMP SET 1 EA INFUS.SET MC ONE ×3 (07:54→13:09)
[2016-10-17] MEDS: LACTOBACILLUS RHAMNOSUS GG 1 EACH CAP.SPRINK GT SCH ×2 (08:00→16:09)
[2016-10-17] MEDS: CLOPIDOGREL BISULFATE 75 MG TABLET GT SCH (08:00)
[2016-10-17] MEDS: CALCIUM CARB 600MG /VIT D 1 EACH TABLET NG SCH (08:00)
[2016-10-17] MEDS: ASPIRIN 81 MG TAB.CHEW NG SCH (08:00)
[2016-10-17] MEDS: IV NS 0.9% 1,000 ML IV PRN (08:00)
[2016-10-17] MEDS: HYDROGEL DRESSING 90 GM TUBE TP SCH (08:01)
[2016-10-17] MEDS: PANTOPRAZOLE 40 MG VIAL IV SCH (08:01)
[2016-10-17] MEDS: LEVOTHYROXINE SODIUM 125 MCG TABLET NG SCH (08:01)
[2016-10-17] MEDS: MORPHINE SULFATE INJ 2 MG/ML DISP.SYRIN IV PRN (08:01)
[2016-10-17] MEDS: CITRIC ACID/SODIUM CITRATE (BICITRA)15 ML UDC PO SCH (08:01)
[2016-10-17] MEDS: Z GUARD REMEDY 2 OZ OINT TP SCH (08:01)
--- NOTE | 2016-10-17 08:01 | NUR ---
ICU/RN - Notes Pt noted with restlessness. Pt medicated with Morphine 2mg IVP to ensure comfort as pt is intubated. Will continue to monitor.
--- NOTE | 2016-10-17 08:02 | NUR ---
RT PT RECEIVED ORALLY INTUBATED ON THE VENT WITH NOTED SETTINGS. PT IS AWAKE BUT DOES NOT FOLLOW COMMANDS. VENT ALARMS ARE SET AND AUDIBLE WITH BVM BY BEDSIDE. CLUB CAR ATTENDANT CUFF PRESSURE NOTED. VENT IS PLUGGED INTO RED OUTLET. SX SMALL THIN WHITE/CLEAR SECRETIONS. NO RESPIRATORY DISTRESS NOTED AT THIS TIME, WILL CONTINUE TO MONITOR. Addendum: 10/17/16 at 1814 by SEB DIA RT Amended: Links added.
[2016-10-17] MEDS: FIBERSOURCE HN 1,000 ML BOTTLE GT PRN (09:53)
--- NOTE | 2016-10-17 10:00 | NUR ---
ICU/RN - Notes Tube feeding started as ordered.
[2016-10-17 10:06] LABS: ABG BASE EXCESS -10.5 mmol/L; ABG OXYGEN SATURATION 97.7 % (92.0-98.5); ABG PCO2 25.3 mmHg (35.0-45.0); ABG PH 7.354 (7.350-7.450); ABG PO2 148.2 mmHg (75.0-100.0); ABG TOTAL HEMOGLOBIN 8.4 G/dL (12.0-16.0); AaDO2 107.9 mmHg; COHb 0.3 % (0.5-1.5); MetHb 2.1 % (0.0-1.5); O2Hb 95.4 % (94.0-97.0); PEEP,BG 5 cm H2O; SITE, ABG Right Radial; VT, ABG 500 mL
--- NOTE | 2016-10-17 11:19 | NUR ---
I SPOKE TO LIDA DIAZ WHO RE ITERATES DNI/DNR STATUS AND PLANS TO ASSEMBLE FAMILY AND FRIENDS TOMORROW 10/18/16 AT 1400 FOR EXTUBATION. MS JOE INSTRUCTS NO RE INTUBATION-EVER AND IS VERY CLEAR THAT PT NEVER WANTED RESUSCITATION OR ETT/VENT. PLANS FULL AGGRESSIVE CARE POST EXTUBATION AND, IF FAILS EXTUBATION, IMMEDIATE COMFORT/HOSPICE CARE
[2016-10-17] MEDS: Magnesium 1GM/D5W 100ML PREMIX 100 ML IV SCH ×2 (11:23→12:23)
--- NOTE | 2016-10-17 11:46 | NUR ---
ICU/RN - Notes Per Dr Leonard, abort SIMV trial as pt is planned for extubation tomorrow and continue AC mode on mechanical ventilator. RT Gerson made aware.
[2016-10-17] MEDS ORDERED: Sodium Bicarbonate 100 MEQ in IV D5W 1,000 ML IV PRN (12:30)
[2016-10-17] MEDS ORDERED: IV NS 0.9% 500 ML IV STA (13:04)
--- NOTE | 2016-10-17 13:18 | NUR ---
ICU/RN - Notes Pt noted to be hypotensive with BP 78/46 and 61/31. Dr Leonard made aware with orders received to infusing 500mL NS bolus. Will carry out.
[2016-10-17] MEDS ORDERED: Sodium Bicarbonate 100 MEQ in IV NS 0.9% 1,000 ML IV PRN (13:30)
[2016-10-17] MEDS: Sodium Bicarbonate 100 MEQ in IV D5W 1,000 ML IV PRN (13:50)
[2016-10-17] MEDS: LORAZEPAM INJ 2 MG/ML VIAL IVP PRN ×2 (17:15→23:45)
--- NOTE | 2016-10-17 17:19 | NUR ---
ICU/RN - Notes Pt noted with restlessness, BP elevated 153/35. Pt medicated with Ativan 0.5mg IVP as ordered PRN. Will continue to monitor.
[2016-10-17 17:22] LABS: CHLORIDE,URINE RANDOM 93 mmol/L (55-125); POTASSIUM RNDM,URINE 12 mmol/L (25-125); URINE SODIUM, RANDOM 94 mmol/l (40-220)
[2016-10-17] MEDS: ATORVASTATIN 10 MG TABLET NG SCH (23:01)
--- NOTE | 2016-10-17 23:45 | NUR ---
ICU/RN INVASIVE PT APPEARS TO BE RESTLESS AND UNCOMFORTABLE. CHARGE NURSE MADE AWARE, ATIVAN 0.5 MG GIVEN IVP. PT WAS TURNED AND REPOSITIONED FOR COMFORT AND CARE.
[2016-10-18] VITALS (34 sets, daily range): BP systolic 107–167; BP diastolic 43–106
[2016-10-18] MEDS: ALBUTEROL FS 2.5 MG/3 ML VIAL.NEB NEB SCH ×7 (00:35→20:16)
[2016-10-18] MEDS: Sodium Bicarbonate 100 MEQ in IV D5W 1,000 ML IV PRN (01:49)
--- NOTE | 2016-10-18 02:30 | NUR ---
ICU/BENZENE OPERATOR PT WAS GIVEN A BATH WITH ORAL CARE. PT TOLERATED THIS WELL, REMAIN ON CURRENT VENT SETTINGS. PT WAS TURNED AND REPOSITIONED FOR COMFORT AND CARE.
--- NOTE | 2016-10-18 04:10 | NUR ---
ICU/SENIOR CONTRACT SPECIALIST AM LABS WERE DRAWN, AWAIT RESULTS. PT WAS TURNED AND REPOSITIONED FOR COMFORT AND CARE. PT APPEARS TO BE COMFORTABLE. NO ACUTE DISTRESS SEEN.
[2016-10-18] MEDS: PIPERACILLIN /TAZOBACTAM 2.25 G in IV D5W 50 ML IV SCH ×3 (04:39→21:03)
[2016-10-18 04:55] LABS: BASOPHILS % (AUTO) 0.3 % (0.0-2.0); EOSINOPHILS # (AUTO) 0.9 /CMM (0.0-0.7); EOSINOPHILS % (AUTO) 8.5 % (0.0-6.0); HEMATOCRIT 27 % (33-45); HEMOGLOBIN 8.8 g/dL (11.5-14.8); LYMPHOCYTES # (AUTO) 1.5 /CMM (0.8-4.8); LYMPHOCYTES % (AUTO) 13.8 % (20.0-44.0); MEAN CORPUSCULAR HEMOGLOBIN 28 PG (26.0-33.0); MEAN CORPUSCULAR HGB CONC 33 g/dl (31.0-36.0); MEAN CORPUSCULAR VOLUME 86 fL (82-100); MONOCYTES # (AUTO) 0.9 /CMM (0.1-1.30); MONOCYTES % (AUTO) 7.9 % (2.0-12.0); NEUTROPHILS # (AUTO) 7.6 /CMM (1.8-8.9); NEUTROPHILS % (AUTO) 69.5 % (43.0-81.0); PLATELET COUNT (AUTO) 333 /CMM (150-450); RDW COEFFICIENT OF VARIATION 16.2 (11.5-15.0); RED BLOOD CELL COUNT(AUTO) 3.13 MIL/uL (4.0-5.2); WHITE BLOOD COUNT (AUTO) 10.9 K/uL (4.3-11.0)
[2016-10-18 04:59] LABS: CALCIUM, SERUM 7.8 mg/dL (8.5-10.1); CREATININE 1.2 mg/dL (0.6-1.3); MAGNESIUM 1.7 mg/dL (1.8-2.4); PHOSPHORUS 1.7 mg/dL (2.5-4.9)
[2016-10-18 05:07] LABS: POTASSIUM 2.7 mmol/L (3.5-5.1)
--- NOTE | 2016-10-18 05:40 | NUR ---
ICU/WARES SORTER CRITICAL LAB OF POTASSIUM AT 2.7. CHARGE NURSE AWARE OF THIS. CALLED PLACED TO DR. MUHAMMAD. AWAIT FOR ORDERS.
--- NOTE | 2016-10-18 06:27 | NUR ---
ICU/TOOL AND DIE SUPERVISOR ORDERS WERE RECEIVED FOR POTASSIUM REPLACEMENT AND OTHER CRITICAL AM LABS. CHARGE NURSE AWARE OF THESE NEW ORDERS.
[2016-10-18] MEDS ORDERED: IV SET PRIMARY PUMP SET 1 EA INFUS.SET MC ONE ×2 (06:28→07:30)
[2016-10-18] MEDS ORDERED: POTASSIUM CL. PREMIX PERIPHER. 50 ML ONE (06:28)
[2016-10-18] MEDS ORDERED: Magnesium 1GM/D5W 100ML PREMIX 100 ML IV ONE (06:28)
[2016-10-18] MEDS ORDERED: POTASSIUM PHOSPHATE MM 15 MMOL in IV D5W 250 ML IV SCH (06:30)
[2016-10-18] MEDS: Magnesium 1GM/D5W 100ML PREMIX 100 ML IV SCH ×2 (06:36→07:46)
[2016-10-18] MEDS: POTASSIUM CL. PREMIX PERIPHER. 50 ML IV SCH ×4 (06:36→10:10)
[2016-10-18] MEDS ORDERED: SECONDARY IV SET 1 EA INFUS.SET MC ONE ×2 (06:45→10:28)
--- NOTE | 2016-10-18 07:45 | NUR ---
ICU/RN - Initial Notes Received pt in bed asleep, lethargic. Orally intubated to mechanical vent with settings as ordered. No s/s of respiratory distress. No s/s of pain or discomfort. Pt able to follow simple commands. NG tube patent and intact. Urostomy noted to right lower abdomen with urine draining to gravity. IVF infusing well. Safety and comfort measures in place. Will continue to monitor pt closely.
[2016-10-18] MEDS: POTASSIUM PHOSPHATE MM 7.5 MMOL in IV D5W 100 ML IV SCH ×2 (07:53→10:28)
[2016-10-18 08:12] LABS: ABG BASE EXCESS 0.4 mmol/L; ABG PCO2 34.2 mmHg (35.0-45.0); ABG PH 7.457 (7.350-7.450); ABG PO2 244.9 mmHg (75.0-100.0); PEEP,BG 5 cm H2O; SITE, ABG Right Radial; VT, ABG 450 mL
[2016-10-18] MEDS: LEVOTHYROXINE SODIUM 125 MCG TABLET NG SCH (08:58)
[2016-10-18] MEDS: CALCIUM CARB 600MG /VIT D 1 EACH TABLET NG SCH (08:58)
[2016-10-18] MEDS: IV 1/2NS 1000 ML 1,000 ML IV PRN (08:58)
[2016-10-18] MEDS: PANTOPRAZOLE 40 MG VIAL IV SCH (08:58)
[2016-10-18] MEDS: CLOPIDOGREL BISULFATE 75 MG TABLET GT SCH (08:58)
[2016-10-18] MEDS: ASPIRIN 81 MG TAB.CHEW NG SCH (08:58)
[2016-10-18] MEDS: LACTOBACILLUS RHAMNOSUS GG 1 EACH CAP.SPRINK GT SCH ×2 (08:58→17:07)
[2016-10-18] MEDS: HYDROGEL DRESSING 90 GM TUBE TP SCH (09:01)
[2016-10-18] MEDS: Z GUARD REMEDY 2 OZ OINT TP SCH (09:01)
[2016-10-18] MEDS: SODIUM BICARBONATE 650 MG TABLET NG SCH (10:28)
[2016-10-18] MEDS: FIBERSOURCE HN 1,000 ML BOTTLE GT PRN (10:28)
[2016-10-18] MEDS: LEVOFLOXACIN 500 MG /D5W 100ML 500 MG in PREMIX 1 EA IV SCH (10:29)
[2016-10-18] MEDS ORDERED: LORAZEPAM INJ 2 MG/ML VIAL IVP PRN (13:00)
[2016-10-18] MEDS ORDERED: MORPHINE SULFATE INJ 2 MG/ML DISP.SYRIN IV PRN (14:00)
--- NOTE | 2016-10-18 14:15 | NUR ---
ICU/RN - Notes DPOA Arleen Torres with visitors at bedside. Pt extubated by RT Osei per as ordered by Dr Leonard. No stridor noted. Pt placed on Non-rebreather mask @ 15lpm. No s/s of respiratory distress, O2 saturation 100%. Oral care rendered. Will continue to monitor.
--- NOTE | 2016-10-18 18:38 | NUR ---
ICU/RN - Notes Pt in no acute distress. Appears comfortable in bed. Tolerating O2 via non-rebreather @ 15lpm well. All needs met and attended. Will endorse to night nurse for continuity of care.
--- NOTE | 2016-10-18 19:30 | NUR ---
Received patient sleeping easy aroused to verbal and tactile stimuli.Non verbal follows simple commands.Afebrile.Tolerating NRB mask 100%SPO2 100%.with bilateral rhonchi on auscultation.SR per monitor.Hemodynamically stable.GT feeding in progress to left NGT. Placement verified.No residual noted.Right urostomy to gravity drainage with clear yellow urine.IVF infusing to NICOLLE Midline and site intact.Turned and repositioned offloading pressure points.No distress noted.Continue monitoring.
[2016-10-18] MEDS: ATORVASTATIN 10 MG TABLET NG SCH (22:00)
[2016-10-19] VITALS (26 sets, daily range): BP systolic 76–157; BP diastolic 26–88
--- NOTE | 2016-10-19 | NUR ---
Patient awake and restless.VS stable.RT placed patient on 5L NC tolerating well post breathing treatment.SPO2 100%.Bed bath rendered for comfort.Wound photos taken and dressing done. Turned and repositioned.
[2016-10-19] MEDS: ALBUTEROL FS 2.5 MG/3 ML VIAL.NEB NEB SCH ×6 (00:01→19:30)
--- NOTE | 2016-10-19 04:00 | NUR ---
Patient resting VS stable.Appears comfortable.RT,MEHRAN titrated O2 down to 2L NC.Patient tolerating well saturation 98%-100%.Continue monitoring.
[2016-10-19] MEDS: PIPERACILLIN /TAZOBACTAM 2.25 G in IV D5W 50 ML IV SCH ×4 (05:03→23:46)
[2016-10-19] MEDS: IV 1/2NS 1000 ML 1,000 ML IV PRN (05:03)
[2016-10-19 05:06] LABS: BASOPHILS # (AUTO) 0.1 /CMM (0.0-0.2); BASOPHILS % (AUTO) 0.6 % (0.0-2.0); EOSINOPHILS # (AUTO) 1.6 /CMM (0.0-0.7); EOSINOPHILS % (AUTO) 12.8 % (0.0-6.0); HEMATOCRIT 28 % (33-45); HEMOGLOBIN 9.2 g/dL (11.5-14.8); LYMPHOCYTES % (AUTO) 16.2 % (20.0-44.0); MEAN CORPUSCULAR HEMOGLOBIN 28 PG (26.0-33.0); MEAN CORPUSCULAR HGB CONC 33 g/dl (31.0-36.0); MEAN CORPUSCULAR VOLUME 86 fL (82-100); MONOCYTES # (AUTO) 0.9 /CMM (0.1-1.30); MONOCYTES % (AUTO) 7.3 % (2.0-12.0); NEUTROPHILS # (AUTO) 7.9 /CMM (1.8-8.9); NEUTROPHILS % (AUTO) 63.1 % (43.0-81.0); PLATELET COUNT (AUTO) 338 /CMM (150-450); RDW COEFFICIENT OF VARIATION 16.7 (11.5-15.0); RED BLOOD CELL COUNT(AUTO) 3.29 MIL/uL (4.0-5.2); WHITE BLOOD COUNT (AUTO) 12.5 K/uL (4.3-11.0)
[2016-10-19 05:23] LABS: CALCIUM, SERUM 7.7 mg/dL (8.5-10.1); MAGNESIUM 1.7 mg/dL (1.8-2.4); POTASSIUM 3.5 mmol/L (3.5-5.1)
--- NOTE | 2016-10-19 06:30 | NUR ---
Patient resting in no distress.VS stable.SR.Denies pain.Tolerating NGT feeding and no residual noted.Patient with high volume urine output.IVF infusing well.All due medications administered. All needs attended and met.Repositioned.
[2016-10-19 06:42] LABS: EOSINOPHILS % (MANUAL) 14 % (0-4); LYMPHOCYTES % (MANUAL) 15 % (16-48); MONOCYTES % (MANUAL) 4 % (0-11.0); NEUTROPHILS % (MANUAL) 67 (42-76)
[2016-10-19 06:43] LABS: PLATELET ESTIMATE ADEQUATE
--- NOTE | 2016-10-19 08:00 | NUR ---
PT RECVD RESTING COMFORTABLY. 2LITERS NC, NON PRODUCTIVE, BUT SATURATING ABOVE 95%. FOLLOWS COMMANDS, SHE IS SLEEPY, BUT FOLLOWS COMMANDS. UROSTOMY DRAINING YELLOW FLUIDS. SHE WAS EXTUBATED YESTERDAY AND PLACED ON NON REBRATHER. AT 4AM SHE WAS PLACED ON 2L NC AND SHE IS TOLERATING WELL. WILL CONTINUE TO MONITOR.
[2016-10-19] MEDS: ASPIRIN 81 MG TAB.CHEW NG SCH (08:01)
[2016-10-19] MEDS: LEVOTHYROXINE SODIUM 125 MCG TABLET NG SCH (08:01)
[2016-10-19] MEDS: PANTOPRAZOLE 40 MG VIAL IV SCH (08:01)
[2016-10-19] MEDS: LACTOBACILLUS RHAMNOSUS GG 1 EACH CAP.SPRINK GT SCH ×2 (08:01→16:43)
[2016-10-19] MEDS: CALCIUM CARB 600MG /VIT D 1 EACH TABLET NG SCH (08:01)
[2016-10-19] MEDS: CLOPIDOGREL BISULFATE 75 MG TABLET GT SCH (08:02)
[2016-10-19] MEDS: SODIUM BICARBONATE 650 MG TABLET NG SCH (08:02)
[2016-10-19] MEDS: HYDROGEL DRESSING 90 GM TUBE TP SCH (08:03)
[2016-10-19] MEDS: Z GUARD REMEDY 2 OZ OINT TP SCH (08:04)
--- NOTE | 2016-10-19 08:39 | NUR ---
CONOR PAL ANALYTICS SENIOR MANAGER ON THE UNIT FOR EVAL. DISCUSS PLAN OF CARE, PLAN FOR SWALLOW EVALUATION AND DC OF NGT IF SHE PASSES. WILL DISCUSS PLAN FOR DEEP SUCTION WITH DR. LUNSFORD.
[2016-10-19] MEDS: FIBERSOURCE HN 1,000 ML BOTTLE GT PRN (10:59)
[2016-10-19] MEDS ORDERED: SECONDARY IV SET 1 EA INFUS.SET MC ONE ×2 (11:03→17:20)
[2016-10-19] MEDS: Magnesium 1GM/D5W 100ML PREMIX 100 ML IV SCH ×2 (11:56→12:44)
--- NOTE | 2016-10-19 14:39 | NUR ---
RIGHT LOWER QUADRANT UROSTOMY BAG CHANGED. SITE CLEANED AND DRY, SKIN IS INTACT. NEW BAG OBTAINED FROM CENTRAL SUPPLY AND CONNECTED TO URINE BAG METER.
[2016-10-19] MEDS ORDERED: Sodium Phosphate 15 MMOL in IV D5W 250 ML IV ONE (16:00)
--- NOTE | 2016-10-19 16:16 | NUR ---
DR. LUNSFORD ON THE UNIT CLEARS PT FOR MED/SURG. PT TRANSFERRED TO [facility] IN STABLE CONDITION. MEDICATIONS AND CHART ACCOMPANIED PATIENT. BEDSIDE DRAWER CHECKED FOR BELONGINGS, NONE AT BEDSIDE.
--- NOTE | 2016-10-19 16:24 | NUR ---
MS/RN Patient transfer Patient received from ICU. Admitted from [facility] with respiratory failure/sepsis. Patient is DNR/DNI. NGT to left nare infusing fibresource at 50ml/hr, pending swallow evaluation. Urostomy to right lower quadrent connected to gray catheter drainage bag. Bed in low setting, side rails x3 in upright position, call light within reach, will continue to monitor.
--- NOTE | 2016-10-19 16:45 | NUR ---
MS/RN Elmer Payne scheduled for 6p but hung at 4:45p as patient has sodium phos scheduled which will infuse over four hours.
[2016-10-19] MEDS ORDERED: NEUTRA PHOS 1 POWD.PACKET NG ONE (17:00)
[2016-10-19] MEDS ORDERED: SET RED CAP 1 EA INFUS.SET MC ONE (17:20)
--- NOTE | 2016-10-19 18:18 | NUR ---
MS/RN End note Dressings to both forearms reinforced, NGT placement checked and feeding continues at 50ml/hr. Safety checks carried out. Will endorse to assistant casino shift manager.
--- NOTE | 2016-10-19 20:00 | NUR ---
RECEIVED PATIENT IN BED, ALERT AND ORIENTED X2, CALM, NO SOB, ON 2LPM VIA NC, 02 SAT 99%, DENIES ANY PAIN AT THIS TIME, ON NG TUBE FEEDING, POSITIVE PLACEMENT ON AUSCULTATION, TOLERATING TUBE FEEDING, NO ABDOMINAL DISTENTION, NO VOMITING. UROSTOMY PATENT AND DRAINING WELL OF CLEAR AND YELLOW URINE, KEPT HOB ELEVATED, ON ASPIRATION PRECAUTION, KEPT SAFE AND COMFORTABLE, CALL LIGHT WITHIN REACH.
--- NOTE | 2016-10-19 20:31 | NUR ---
NOTIFIED BY DEPOSITION OPERATOR, PATIENT PULLED OUT NG TUBE, ON ASSESSMENT NARES ARE INTACT, NO BLEEDING, NG TUBE PULLED COMPLETELY. PAGED DR. MUHAMMAD, AWAITING CALL BACK. WILL CONTINUE TO MONITOR
--- NOTE | 2016-10-19 22:04 | NUR ---
DR PACE ORDERED TO INSERT NG TUBE, XRAY FOR PLACEMENT AND BILATERAL MITTENS, ORDERS NOTED AND CARRIED OUT.
--- NOTE | 2016-10-19 22:58 | NUR ---
NG TUBE RE INSERTED, AUSCULTATED, POSITIVE PLACEMEMENT, ALSO DONE BY ANOTHER RN. CHEST XRAY ORDERED FOR PLACEMENT DETERMINATION, DUE MEDICATIONS HELD PENDING XRAY.
--- NOTE | 2016-10-20 00:11 | NUR ---
TUBE FEEDING ON HOLD, PENDING XRAY RESULT FOR PLACEMENT
--- NOTE | 2016-10-20 00:34 | NUR ---
NG TUBE PLACEMENT VIA XRAY IS IN STOMACH PER REPORT, WILL RESUME NG TUBE FEEDING AND MEDICATION VIA NG TUBE
[2016-10-20] MEDS: ATORVASTATIN 10 MG TABLET NG SCH ×2 (00:41→21:51)
[2016-10-20] MEDS: ALBUTEROL FS 2.5 MG/3 ML VIAL.NEB NEB SCH ×8 (03:30→22:51)
--- NOTE | 2016-10-20 03:30 | NUR ---
CALLED RT FOR SCHEDULED BREATHING TX, PER WILLIAM, WILL ADMINISTER
--- NOTE | 2016-10-20 03:40 | NUR ---
PATIENT TOLERATING FIBERSOURCE AT 50 CC/HR, NO SOB, NO DISTRESS, KEPT HOB ELEVATED. WILL CONTINUE TO MONITOR.
[2016-10-20] MEDS: PIPERACILLIN /TAZOBACTAM 2.25 G in IV D5W 50 ML IV SCH ×4 (05:09→23:22)
--- NOTE | 2016-10-20 06:33 | NUR ---
PATIENT IS ALERT AND AWAKE, NO SOB NO DISTRESS, TOLERATING NC AT 2LPM, NG TUBE PATENT AND INFUSING WELL, FEEDING TOLERATED WELL. NO ABDOMINAL DISTENTION, NO VOMITING, UROSTOMY DRAINING WELL OF CLEAR AND YELLOW URINE, KEPT SAFE AND COMFORTABLE, CALL LIGHT WITHIN REACH.
[2016-10-20 07:38] LABS: BASOPHILS # (AUTO) 0.1 /CMM (0.0-0.2); BASOPHILS % (AUTO) 0.6 % (0.0-2.0); EOSINOPHILS # (AUTO) 1.8 /CMM (0.0-0.7); EOSINOPHILS % (AUTO) 12.2 % (0.0-6.0); HEMATOCRIT 30 % (33-45); HEMOGLOBIN 9.8 g/dL (11.5-14.8); LYMPHOCYTES # (AUTO) 1.9 /CMM (0.8-4.8); LYMPHOCYTES % (AUTO) 13.6 % (20.0-44.0); MEAN CORPUSCULAR HEMOGLOBIN 28 PG (26.0-33.0); MEAN CORPUSCULAR HGB CONC 33 g/dl (31.0-36.0); MEAN CORPUSCULAR VOLUME 86 fL (82-100); MONOCYTES # (AUTO) 0.8 /CMM (0.1-1.30); MONOCYTES % (AUTO) 5.6 % (2.0-12.0); NEUTROPHILS # (AUTO) 9.7 /CMM (1.8-8.9); PLATELET COUNT (AUTO) 398 /CMM (150-450); RDW COEFFICIENT OF VARIATION 16.5 (11.5-15.0); RED BLOOD CELL COUNT(AUTO) 3.46 MIL/uL (4.0-5.2); WHITE BLOOD COUNT (AUTO) 14.3 K/uL (4.3-11.0)
[2016-10-20 07:54] LABS: CALCIUM, SERUM 7.8 mg/dL (8.5-10.1); MAGNESIUM 1.9 mg/dL (1.8-2.4); PHOSPHORUS 3.4 mg/dL (2.5-4.9); POTASSIUM 3.6 mmol/L (3.5-5.1)
[2016-10-20 08:00] VITALS: BP 143/83
--- NOTE | 2016-10-20 08:46 | NUR ---
MS/RN Medications All medications given via NGT, placement checked prior to administration. Tube flushed with water before and after administration.
--- NOTE | 2016-10-20 08:48 | NUR ---
MS/RN Patient received Patient received from night shift manager. Appears comfortable, in no distress. NGT in place, placement confirmed. Remains with mittens as pulling at NGT. All safety measures enforced. Will continue to monitor and ensure safety.
[2016-10-20] MEDS: CALCIUM CARB 600MG /VIT D 1 EACH TABLET NG SCH (09:08)
[2016-10-20] MEDS: LACTOBACILLUS RHAMNOSUS GG 1 EACH CAP.SPRINK GT SCH ×2 (09:08→16:50)
[2016-10-20] MEDS: ASPIRIN 81 MG TAB.CHEW NG SCH (09:08)
[2016-10-20] MEDS: PANTOPRAZOLE 40 MG VIAL IV SCH (09:09)
[2016-10-20] MEDS: CLOPIDOGREL BISULFATE 75 MG TABLET GT SCH (09:09)
--- NOTE | 2016-10-20 09:15 | NUR ---
MS/RN Labs Morning labs reviewed: -WBC 14.3 -K+ 3.6 (was 2.7) -H&H 9.8/30 CXR - worsening infiltrates.
[2016-10-20] MEDS: HYDROGEL DRESSING 90 GM TUBE TP SCH (09:47)
--- NOTE | 2016-10-20 10:37 | NUR ---
Per Dr. Leonard daily ABG cancelled.
--- NOTE | 2016-10-20 11:00 | NUR ---
MS/RN Swallow evaluation Swallow evaluation at bedside - passed. Per ST, recommend puree with nectar thickened liquids.
--- NOTE | 2016-10-20 11:30 | NUR ---
MS/RN S/B Dr Fung Seen by Dr Fung - labs ordered for tomorrow.
[2016-10-20] MEDS: LEVOFLOXACIN 500 MG /D5W 100ML 500 MG in PREMIX 1 EA IV SCH (11:46)
[2016-10-20] MEDS: LEVOTHYROXINE SODIUM 125 MCG TABLET NG SCH (11:46)
[2016-10-20] MEDS: Z GUARD REMEDY 2 OZ OINT TP SCH (11:51)
--- NOTE | 2016-10-20 12:24 | NUR ---
MS/RN S/B Dr Sanchez Seen by Dr Sanchez - NGT to be removed, puree diet with nectar thickened liquids ordered.
--- NOTE | 2016-10-20 13:41 | NUR ---
MS/RN NGT / Midline NGT and midline removed. Per Dr Sanchez, will come to floor to reinsert midline later today.
[2016-10-20 16:00] VITALS: BP 139/61
[2016-10-20 18:00] VITALS: BP 139/61
--- NOTE | 2016-10-20 18:27 | NUR ---
MS/RN End note Nursing wood mill supervisor called to remind that we are still waiting for midline insertion. All needs attended, skin kept clean and dry. Patient has been turned and repositioned sumit 2- hours to prevent skin breakdown. Will endorse to shiftman.
[2016-10-20 20:00] VITALS: BP 139/74
--- NOTE | 2016-10-20 20:00 | NUR ---
PATIENT IN BED, ALERT AND ORIENTED X1, ABLE TO ANSWER TO SIMPLE QUESTIONS, NO SOB, NO COMPLAIN OF PAIN. S/P MIDLINE INSERTION TO RIGHT UPPER ARM, NG TUBE DISCONTINUED, DIET UPGRADED TO PUREED WITH NECTAR THICK LIQUID, KEPT SAFE AND COMFORTABLE, CALL LIGHT WITHIN REACH.
[2016-10-20 20:34] VITALS: BP 139/74
--- NOTE | 2016-10-20 21:00 | NUR ---
PATIENT GIVEN MEDICATION CRUSHED WITH APPLE SAUCE, ABLE TO SWALLOW WITHOUT DIFFICULTY AND COUGHING. ASPIRATION PRECAUTION, KEPT HOB ELEVATED
[2016-10-21] MEDS: ALBUTEROL FS 2.5 MG/3 ML VIAL.NEB NEB SCH ×6 (03:39→19:30)
[2016-10-21] MEDS ORDERED: MAGNESIUM HYDROXIDE 30 ML UDC PO PRN (04:30)
--- NOTE | 2016-10-21 04:32 | NUR ---
DURING DIAPER CHANGE, NOTED BUMP ON BACK OF NECK MEASURING [id number], BUMP HAS YELLOW CENTER. REFERRED TO WOUND CARE. PHOTO TAKEN AND IN CHART.
[2016-10-21] MEDS: PIPERACILLIN /TAZOBACTAM 2.25 G in IV D5W 50 ML IV SCH ×3 (05:12→17:04)
--- NOTE | 2016-10-21 06:30 | NUR ---
PATIENT RESTING COMFORTABLY, AROUSEABLE BY VOICE AND TOUCH, WITH EPISODES OF RESTLESSNESS, PULLING OUT DRESSING, SCRATCHING ARM. GIVEN ATIVAN 0.5 MG IVP X1, UROSTOMY DRAINING WELL OF CLEAR URINE, NO ADVERSE CHANGE OF CONDITION DURING SHIFT, WOUND CARE PROVIDED TO LEFT FOREARM, GOOD PERINEAL CARE PERFORMED, KEPT SAFE AND COMFORTABLE, CALL LIGHT WITHIN REACH.
[2016-10-21] MEDS: PANTOPRAZOLE 40 MG VIAL IV SCH (08:03)
--- NOTE | 2016-10-21 08:39 | NUR ---
WOUND CARE CONSULT: PT SEEN FOR POSTERIOR NECK RAISED BUMP WHICH IS INDURATED. RECOMMEND SURGICAL CONSULT. PT ALSO NOTED TO HAVE HEALED STAGE II SACRAL ULCER, RASH TO GLUTEAL CREASE AND PERINEUM, LEFT UNDERSIDE OF ARM HAS SOME REDNESS AND SWELLING. ARM ELEVATED ON PILLOW. PT ON FIRST STEP MATTRESS. ALL SKIN PROTECTION RECOMMENDATIONS DISCUSSED WITH NURSING STAFF. MD IN AGREEMENT WITH PLAN OF CARE.
[2016-10-21] MEDS: ASPIRIN 81 MG TAB.CHEW PO SCH (09:10)
[2016-10-21] MEDS: LACTOBACILLUS RHAMNOSUS GG 1 EACH CAP.SPRINK PO SCH ×2 (09:11→16:14)
[2016-10-21] MEDS: CLOPIDOGREL BISULFATE 75 MG TABLET PO SCH (09:11)
[2016-10-21] MEDS: CALCIUM CARB 600MG /VIT D 1 EACH TABLET PO SCH (09:11)
[2016-10-21] MEDS: LEVOTHYROXINE SODIUM 125 MCG TABLET PO SCH (09:12)
[2016-10-21] MEDS: CLOTRIMAZOLE 1% 15 GM TUBE TP SCH ×2 (11:34→16:14)
[2016-10-21] MEDS: Z GUARD REMEDY 2 OZ OINT TP SCH (11:34)
[2016-10-21 16:00] VITALS: BP 136/75
--- NOTE | 2016-10-21 18:21 | NUR ---
MS/RN: notes patient reassessed per Medical / Surgical protocol, no acute change noted, pleases see completed data in flowsheets. patient alert and oriented x 1, adequate oxygenation on 2 liter nasal cannula, saturation >95%,no complain pain noted, vss, afebrile, no s/ of aspiration noted. tolerated diet well for dinner, 85% intact, urine output 1500 ml, loosed BM x1. patient turned and positioned q2h and prn. will continue to monitor closely and intervene as appropriate.
--- NOTE | 2016-10-21 19:40 | NUR ---
MS RN NOTE: PATIENT RESTING IN BED, NO ACUTE DISTRESS NOTED. BREATHING EVEN AND UNLABORED, NO SOB NOTED. MIDLINE TO SKY IN PLACE. IV TO RFA IN PLACE INFUSING 1/2 NS AT 50 ML/HR. BED LOCKED AND IN LOWEST POSITION, CALL LIGHT IN REACH. WILL CONTINUE TO MONITOR.
[2016-10-21 20:00] VITALS: BP 131/60
[2016-10-21] MEDS: ATORVASTATIN 10 MG TABLET PO SCH (21:42)
[2016-10-21] MEDS: IV 1/2NS 1000 ML 1,000 ML IV PRN (21:45)
[2016-10-22] MEDS: ALBUTEROL FS 2.5 MG/3 ML VIAL.NEB NEB SCH ×7 (00:03→22:53)
[2016-10-22] MEDS: PIPERACILLIN /TAZOBACTAM 2.25 G in IV D5W 50 ML IV SCH ×5 (00:21→23:03)
--- NOTE | 2016-10-22 04:00 | NUR ---
MS RN NOTE: PATIENT UROSTOMY BAG ACCIDENTALLY REMOVED, OSTOMY BAG UNABLE TO STICK TO PATIENT. HAD TO CONNECT TO NEW COLOSTOMY BAG AND CONNECT TUBING TO DRAINAGE BAG. NO UROSTOMY BAG ON PYXIS ON THIS FLOOR OR 3RD FLOOR. WILL CONTINUE TO MONITOR.
--- NOTE | 2016-10-22 06:20 | NUR ---
MS RN NOTE: PATIENT RESTING IN BED, NO ACUTE DISTRESS NOTED. BREATHING EVEN AND UNLABORED, NO SOB NOTED. MIDLINE TO SKY IN PLACE. IV TO RFA IN PLACE INFUSING 1/2 NS AT 50 ML/HR. BED LOCKED AND IN LOWEST POSITION, CALL LIGHT IN REACH. WILL ENDORSE TO DAY NURSE TO CONTINUE WITH PLAN OF CARE.
[2016-10-22] MEDS: LEVOTHYROXINE SODIUM 125 MCG TABLET PO SCH (06:36)
[2016-10-22 08:00] VITALS: BP 128/62
--- NOTE | 2016-10-22 08:00 | NUR ---
MS RN NOTES RECEIVED PT WHILE SHE WAS RESTING IN BED. PATIENT IS A/OX2. NO SOB OR ANY S/S OF DISTRESS NOTED. PT BREATHING IS EVEN AND UNLABORED. BED IS IN LOW LOCKED POSITION. IV IS PATENT AND INTACT. PATIENT DIAZ CATHETER IS INTACT AND DRAINING CLEAR PINK URINE. PER PM SHIFT, PT WAS PULLING AT UROSTOMY BAG WHICH CAUSED SLIGHT HEMATURIA. WILL CONTINUE TO MONITOR THROUGHOUT SHIFT.
[2016-10-22] MEDS: PANTOPRAZOLE 40 MG VIAL IV SCH (09:14)
[2016-10-22] MEDS: CLOPIDOGREL BISULFATE 75 MG TABLET PO SCH (09:15)
[2016-10-22] MEDS: CALCIUM CARB 600MG /VIT D 1 EACH TABLET PO SCH (09:15)
[2016-10-22] MEDS: LACTOBACILLUS RHAMNOSUS GG 1 EACH CAP.SPRINK PO SCH ×2 (09:15→17:51)
[2016-10-22] MEDS: ASPIRIN 81 MG TAB.CHEW PO SCH (09:15)
[2016-10-22] MEDS: CLOTRIMAZOLE 1% 15 GM TUBE TP SCH ×2 (09:17→17:52)
[2016-10-22] MEDS: Z GUARD REMEDY 2 OZ OINT TP PRN (09:43)
[2016-10-22] MEDS: Z GUARD REMEDY 2 OZ OINT TP SCH (09:46)
[2016-10-22] MEDS ORDERED: SECONDARY IV SET 1 EA INFUS.SET MC ONE ×2 (11:08→12:35)
[2016-10-22] MEDS: LEVOFLOXACIN 500 MG /D5W 100ML 500 MG in PREMIX 1 EA IV SCH (11:15)
[2016-10-22 16:00] VITALS: BP 129/77
--- NOTE | 2016-10-22 19:04 | NUR ---
RN NOTES PT IN BED RESTING. NO SOB OR ANY S/S OF DISTRESS. PT IS A/OX2. PT DENIES PAIN. BED IS IN LOW LOCKED POSITION. CALL LIGHT IS WITHIN REACH. WILL ENDORSE CARE TO PM SHIFT.
--- NOTE | 2016-10-22 19:30 | NUR ---
RN NOTES RECEIVED PT. AWAKE ON BED, A/OX2, UROSTOMY IN PLACE, IV FLUID RUNNING @ 50ML/HR, NO PAIN NOTED, NO SOB, SIDERAILS UPX2 CONTINUE TO MONITOR
[2016-10-22 20:00] VITALS: BP 131/54
[2016-10-22] MEDS: ATORVASTATIN 10 MG TABLET PO SCH (21:18)
[2016-10-22] MEDS: IV 1/2NS 1000 ML 1,000 ML IV PRN (21:18)
[2016-10-23] MEDS: ALBUTEROL FS 2.5 MG/3 ML VIAL.NEB NEB SCH ×5 (03:32→21:49)
[2016-10-23] MEDS: PIPERACILLIN /TAZOBACTAM 2.25 G in IV D5W 50 ML IV SCH ×3 (05:41→18:20)
--- NOTE | 2016-10-23 06:29 | NUR ---
RN NOTES AWAKE, MORNING CARE RENDERED, UROSTOMY IN PLACE, PT. NEEDS ATTENDED. ENDORSED TO [facility] NURSE FOR CONTINUITY OF CARE
[2016-10-23 06:41] LABS: BASOPHILS # (AUTO) 0.1 /CMM (0.0-0.2); BASOPHILS % (AUTO) 0.5 % (0.0-2.0); EOSINOPHILS # (AUTO) 1.6 /CMM (0.0-0.7); EOSINOPHILS % (AUTO) 11.4 % (0.0-6.0); HEMATOCRIT 29 % (33-45); HEMOGLOBIN 9.5 g/dL (11.5-14.8); LYMPHOCYTES # (AUTO) 2.5 /CMM (0.8-4.8); LYMPHOCYTES % (AUTO) 17.7 % (20.0-44.0); MEAN CORPUSCULAR HEMOGLOBIN 28 PG (26.0-33.0); MEAN CORPUSCULAR HGB CONC 33 g/dl (31.0-36.0); MEAN CORPUSCULAR VOLUME 86 fL (82-100); MONOCYTES % (AUTO) 6.7 % (2.0-12.0); NEUTROPHILS # (AUTO) 9.1 /CMM (1.8-8.9); NEUTROPHILS % (AUTO) 63.7 % (43.0-81.0); PLATELET COUNT (AUTO) 418 /CMM (150-450); RDW COEFFICIENT OF VARIATION 16.6 (11.5-15.0); RED BLOOD CELL COUNT(AUTO) 3.36 MIL/uL (4.0-5.2); WHITE BLOOD COUNT (AUTO) 14.2 K/uL (4.3-11.0)
[2016-10-23 07:22] LABS: CREATININE 1.4 mg/dL (0.6-1.3); MAGNESIUM 1.7 mg/dL (1.8-2.4); PHOSPHORUS 3.2 mg/dL (2.5-4.9); POTASSIUM 3.5 mmol/L (3.5-5.1)
[2016-10-23 08:00] VITALS: BP 123/55
--- NOTE | 2016-10-23 08:00 | NUR ---
MS RN NOTES RECEIVED PATIENT RELAXING IN BED. PATIENT IS A/O X2, STABLE. NO S/S OF DISTRESS NOTED. NO SOB NOTED. IV IS INTACT AND PATENT. UROSTOMY IS INTACT. BED IS IN LOW LOCKED POSITION. CALL LIGHT IS WITHIN REACH. WILL CONTINUE TO MONITOR THROUGHOUT SHIFT.
[2016-10-23] MEDS: CLOPIDOGREL BISULFATE 75 MG TABLET PO SCH (09:19)
[2016-10-23] MEDS: LACTOBACILLUS RHAMNOSUS GG 1 EACH CAP.SPRINK PO SCH ×2 (09:19→16:47)
[2016-10-23] MEDS: CALCIUM CARB 600MG /VIT D 1 EACH TABLET PO SCH (09:19)
[2016-10-23] MEDS: LEVOTHYROXINE SODIUM 125 MCG TABLET PO SCH (09:19)
[2016-10-23] MEDS: ASPIRIN 81 MG TAB.CHEW PO SCH (09:19)
[2016-10-23] MEDS: PANTOPRAZOLE 40 MG VIAL IV SCH (09:20)
[2016-10-23] MEDS: Z GUARD REMEDY 2 OZ OINT TP SCH (09:21)
[2016-10-23] MEDS: CLOTRIMAZOLE 1% 15 GM TUBE TP SCH ×2 (09:21→16:46)
[2016-10-23] MEDS ORDERED: IV SET PRIMARY PUMP SET 1 EA INFUS.SET MC ONE (12:50)
[2016-10-23] MEDS: Magnesium 1GM/D5W 100ML PREMIX 100 ML IV SCH ×2 (12:55→14:08)
[2016-10-23] MEDS ORDERED: SECONDARY IV SET 1 EA INFUS.SET MC ONE (14:08)
[2016-10-23 16:00] VITALS: BP 127/81
--- NOTE | 2016-10-23 18:55 | NUR ---
MS RN NOTES PATIENT IS IN BED RESTING COMFORTABLY. NO S/S OF DISTRESS OR SOB NOTED. IV IS INTACT AND PATENT. UROSTOMY IS INTACT AND PATENT DRAINING CLEAR YELLOW URINE. BED IS IN LOW LOCKED POSITION. CALL LIGHT IS WITHIN REACH. PT DENIES PAIN AT THIS TIME. WILL ENDORSE CARE TO PM SHIFT.
--- NOTE | 2016-10-23 19:30 | NUR ---
MS RN NOTES RECEIVED PT IN BED, AWAKE, A/O X 1. VERBALLY RESPONSIVE. NO DISTRESS, NO SOB NOTED. RESPIRATION IS EVEN AND UNLABORED. ABDOMEN IS SOFT AND NON DISTENDED. UROSTOMY IS INTACT DRAINING WITH CLEAR YELLOW URINE. ON PUREED DIET ENMA WELL. ALL NEEDS ATTENDED ABND MET. KEPT COMFORTABLE. CALL LIGHT WITHIN REACH. WILL CONT TO MONITOR.
[2016-10-23 20:00] VITALS: BP_SYST 121; BP_SYST 136; BP_DIAS 51; BP_DIAS 63
[2016-10-23 22:00] VITALS: BP 136/51
[2016-10-23] MEDS: ATORVASTATIN 10 MG TABLET PO SCH (22:34)
[2016-10-24] MEDS: ALBUTEROL FS 2.5 MG/3 ML VIAL.NEB NEB SCH ×6 (00:25→18:47)
[2016-10-24] MEDS: PIPERACILLIN /TAZOBACTAM 2.25 G in IV D5W 50 ML IV SCH ×4 (00:39→17:20)
[2016-10-24] MEDS: IV 1/2NS 1000 ML 1,000 ML IV PRN (04:53)
[2016-10-24 06:42] LABS: BASOPHILS # (AUTO) 0.1 /CMM (0.0-0.2); BASOPHILS % (AUTO) 0.8 % (0.0-2.0); EOSINOPHILS # (AUTO) 1.4 /CMM (0.0-0.7); EOSINOPHILS % (AUTO) 11.3 % (0.0-6.0); HEMATOCRIT 30 % (33-45); HEMOGLOBIN 9.8 g/dL (11.5-14.8); LYMPHOCYTES # (AUTO) 2.6 /CMM (0.8-4.8); LYMPHOCYTES % (AUTO) 21.4 % (20.0-44.0); MEAN CORPUSCULAR HEMOGLOBIN 29 PG (26.0-33.0); MEAN CORPUSCULAR HGB CONC 33 g/dl (31.0-36.0); MEAN CORPUSCULAR VOLUME 87 fL (82-100); MONOCYTES # (AUTO) 0.9 /CMM (0.1-1.30); MONOCYTES % (AUTO) 7.2 % (2.0-12.0); NEUTROPHILS # (AUTO) 7.3 /CMM (1.8-8.9); NEUTROPHILS % (AUTO) 59.3 % (43.0-81.0); PLATELET COUNT (AUTO) 449 /CMM (150-450); RDW COEFFICIENT OF VARIATION 16.5 (11.5-15.0); RED BLOOD CELL COUNT(AUTO) 3.43 MIL/uL (4.0-5.2); WHITE BLOOD COUNT (AUTO) 12.3 K/uL (4.3-11.0)
--- NOTE | 2016-10-24 06:42 | NUR ---
MS RN NOTES PT IN BED, AWAKE, A/O X 1. VERBALLY RESPONSIVE. NO DISTRESS, NO SOB NOTED. RESPIRATION IS EVEN AND UNLABORED. ABDOMEN IS SOFT AND NON DISTENDED. IV SIT STEPHEN RFA AND SKY MIDLINE INTACT AND PATENT, IVF INFUSING WELL. UROSTOMY IS INTACT DRAINING WITH CLEAR YELLOW URINE. ON PUREED DIET ENAM WELL. ALL NEEDS ATTENDED AND MET. KEPT COMFORTABLE. CALL LIGHT WITHIN REACH. WILL ENDORSE TO NEXT SHIFT FOR RAHEL.
[2016-10-24 07:07] LABS: CALCIUM, SERUM 8.3 mg/dL (8.5-10.1); CREATININE 1.2 mg/dL (0.6-1.3); MAGNESIUM 2.3 mg/dL (1.8-2.4); POTASSIUM 3.6 mmol/L (3.5-5.1)
--- NOTE | 2016-10-24 07:30 | NUR ---
MS RN NOTES RECEIVED PT ON BED AWAKE ALERT OX1 WITH CONFUSION NOTED. BREATHING EVEN AND NON LABORED. WITH O2 AT 2LPM VIA NC O2 SAT 96%. NO S/S OF ANY DISCOMFORT OR RESPIRATORY DISTRESS NOTED. CALL LIGHT WITHIN REACH, BED IN LOW POSITION FOR SAFETY MEASURES. WILL CONTINUE TO MONITOR.
[2016-10-24 08:00] VITALS: BP 138/68
[2016-10-24] MEDS: CLOPIDOGREL BISULFATE 75 MG TABLET PO SCH (08:53)
[2016-10-24] MEDS: CALCIUM CARB 600MG /VIT D 1 EACH TABLET PO SCH (08:53)
[2016-10-24] MEDS: PANTOPRAZOLE 40 MG VIAL IV SCH (08:53)
[2016-10-24] MEDS: ASPIRIN 81 MG TAB.CHEW PO SCH (08:53)
[2016-10-24] MEDS: LACTOBACILLUS RHAMNOSUS GG 1 EACH CAP.SPRINK PO SCH ×2 (08:53→17:18)
[2016-10-24] MEDS: LEVOTHYROXINE SODIUM 125 MCG TABLET PO SCH (08:53)
[2016-10-24] MEDS: CLOTRIMAZOLE 1% 15 GM TUBE TP SCH ×2 (08:55→17:18)
[2016-10-24] MEDS: Z GUARD REMEDY 2 OZ OINT TP SCH (08:55)
[2016-10-24] MEDS: LEVOFLOXACIN 500 MG /D5W 100ML 500 MG in PREMIX 1 EA IV SCH (11:09)
--- NOTE | 2016-10-24 13:00 | NUR ---
MS RN NOTES S/B DR. CRAWLEY WITH ORDERS MADE. PT TO DC TO SNF TODAY. ORDERS CARRIED OUT.
[2016-10-24] MEDS ORDERED: ALBUT2 NEB (14:43)
[2016-10-24 16:00] VITALS: BP 130/59
--- NOTE | 2016-10-24 16:00 | NUR ---
MS RN NOTES SPOKE TO VINOD CARBAJAL AND MADE HER AWARE ON THE DC ORDERS. VINOD REQUESTED NOT TO DC THE PT TO [facility], SHE WANT HER TO GO TO [facility]. VISHAL RAMIREZ MADE AWARE.
--- NOTE | 2016-10-24 18:21 | NUR ---
MS RN NOTES NEEDS ALL ATTENDED AND ANTICIPATED. ENDORSED TO INCOMING SHIFT FOR CONTINUITY OF CARE.
--- NOTE | 2016-10-24 19:35 | NUR ---
MS RN NOTES RECEIVED ON BED A/O X1,CONFUSED,BREATHING NON LABORED,O2 IN USED AT 2L/NC TO KEPT O2 SAT ABOVE 90%.IVF 1/2 NS AT 50ML/HR RATE INFUSING WELL TO RFA,SITE PATENT.WITH UROSTOMY CONNECTED TO DIAZ BAG,DRAINING YELLOWISH OUTPUT.CALL LIGHT IN REACH,NEEDS ANTICIPATED.
[2016-10-24 20:00] VITALS: BP_SYST 106; BP_SYST 136; BP_DIAS 51; BP_DIAS 60
[2016-10-24] MEDS: ATORVASTATIN 10 MG TABLET PO SCH (21:55)
--- NOTE | 2016-10-25 | NUR ---
MS RN NOTES DUE ZOSYN 2.25GM IVPB HUNG
[2016-10-25] MEDS: PIPERACILLIN /TAZOBACTAM 2.25 G in IV D5W 50 ML IV SCH ×3 (00:03→12:25)
[2016-10-25] MEDS: ALBUTEROL FS 2.5 MG/3 ML VIAL.NEB NEB SCH ×4 (00:12→11:42)
--- NOTE | 2016-10-25 03:00 | NUR ---
MS RN NOTES CALM AT THIS TIME,KEPT WARM
[2016-10-25] MEDS: IV 1/2NS 1000 ML 1,000 ML IV PRN (05:29)
--- NOTE | 2016-10-25 05:30 | NUR ---
MS RN NOTES DUE JEAN PIERRE GOODMAN
--- NOTE | 2016-10-25 06:00 | NUR ---
MS RN NOTES MORNING CARE RENDERED BY FANNY MISTRY.NOTED REDNESS ON PERINEAL AND RECTAL FORM BM.CLEANSE WITH REMEDY NO RINSE AND APPLIED REMEDY CREAM.REPOSITION TO COMFORT.AWAKE MOST OF THE NIGHT.POSSIBLE D/C TO SNF TODAY.WILL ENDORSE TO DAY NURSE FOR RAHEL.
[2016-10-25] MEDS: Z GUARD REMEDY 2 OZ OINT TP SCH (06:19)
--- NOTE | 2016-10-25 07:10 | NUR ---
MS RN NOTES RECEIVED PATIENT IN BED, AWAKE. A/O X1-2, ON OXYGEN AT 2L/MIN VIA NC, NO SOB. IV IN RFA G22 PATENT AND INTACT, 1/2 NS INFUSING AT 50ML/HR. UROSTOMY IN PLACE WITH URINE CLEAR AND YELLOW, NO BLEEDING NOTED, AFEBRILE. NO C/O PAIN AT THIS TIME, APPEARS COMFORTABLE IN BED. CALL LIGHT WITHIN REACH. WILL CONT TO MONITOR.
[2016-10-25 08:00] VITALS: BP 148/65
[2016-10-25 08:47] LABS: BASOPHILS # (AUTO) 0.1 /CMM (0.0-0.2); BASOPHILS % (AUTO) 0.7 % (0.0-2.0); EOSINOPHILS # (AUTO) 1.1 /CMM (0.0-0.7); EOSINOPHILS % (AUTO) 8.9 % (0.0-6.0); HEMATOCRIT 28 % (33-45); HEMOGLOBIN 9.1 g/dL (11.5-14.8); LYMPHOCYTES # (AUTO) 2.5 /CMM (0.8-4.8); LYMPHOCYTES % (AUTO) 20.9 % (20.0-44.0); MEAN CORPUSCULAR HEMOGLOBIN 29 PG (26.0-33.0); MEAN CORPUSCULAR HGB CONC 33 g/dl (31.0-36.0); MEAN CORPUSCULAR VOLUME 87 fL (82-100); MONOCYTES % (AUTO) 8.2 % (2.0-12.0); NEUTROPHILS # (AUTO) 7.2 /CMM (1.8-8.9); NEUTROPHILS % (AUTO) 61.3 % (43.0-81.0); PLATELET COUNT (AUTO) 414 /CMM (150-450); RDW COEFFICIENT OF VARIATION 16.5 (11.5-15.0); WHITE BLOOD COUNT (AUTO) 11.8 K/uL (4.3-11.0)
[2016-10-25] MEDS: PANTOPRAZOLE 40 MG VIAL IV SCH (08:57)
[2016-10-25] MEDS: CLOPIDOGREL BISULFATE 75 MG TABLET PO SCH (08:57)
[2016-10-25] MEDS: ASPIRIN 81 MG TAB.CHEW PO SCH (08:57)
[2016-10-25] MEDS: LACTOBACILLUS RHAMNOSUS GG 1 EACH CAP.SPRINK PO SCH (08:57)
[2016-10-25] MEDS: CALCIUM CARB 600MG /VIT D 1 EACH TABLET PO SCH (08:57)
[2016-10-25] MEDS: LEVOTHYROXINE SODIUM 125 MCG TABLET PO SCH (08:57)
[2016-10-25 09:04] LABS: CALCIUM, SERUM 7.9 mg/dL (8.5-10.1); CREATININE 1.2 mg/dL (0.6-1.3); MAGNESIUM 1.9 mg/dL (1.8-2.4); POTASSIUM 3.9 mmol/L (3.5-5.1)
[2016-10-25] MEDS: CLOTRIMAZOLE 1% 15 GM TUBE TP SCH (09:05)
--- NOTE | 2016-10-25 13:30 | NUR ---
MS RN DISCHARGED PATIENT HAS BEEN CLEARED FOR DISCHARGE BY MD. PATIENT REMAINS STABLE, A/O X1-2, VERBALLY RESPONSIVE. SKIN INTACT, HAD BOWEL MOVEMENT TODAY. MID LINE IV, RFA IV ACCESS REMOVED, GAUZE APPLIED, NO BLEEDING NOTED. UROSTOMY TUBE REMAINS IN PLACE. CALLED [facility], SPOKE TO ELSA FOR REPORT. PATIENT LEFT HOSP IN STABLE CONDITION VIA AMBULANCE. NOTIFIED JUAN JOSE, LEFT MESSAGE TO HER VOICE MAIL.
== END 2016-10-25 01:45 | DRG 870 ==
LOC: ER 17:46 → ICU 19:12 → MEDSG2 10-19 15:50
PROVIDERS: ADMIT Internal Medicine; ATTEND Internal Medicine
PROC: 5A1955Z Respiratory Ventilation, Greater than 96 Consecutive Hours (ICD-10-PCS; principal; 2016-10-13)
PROC: 05H633Z Insertion of Infusion Device into Left Subclavian Vein, Percutaneous Approach (ICD-10-PCS; 2016-10-15)
PROC: 05H533Z Insertion of Infusion Device into Right Subclavian Vein, Percutaneous Approach (ICD-10-PCS; 2016-10-20)
DX: A41.9 Sepsis, unspecified organism (principal); G93.40 Encephalopathy, unspecified; J96.01 Acute respiratory failure with hypoxia; J69.0 Pneumonitis due to inhalation of food and vomit; R65.21 Severe sepsis with septic shock; J96.02 Acute respiratory failure with hypercapnia; N17.0 Acute kidney failure with tubular necrosis; E43 Unspecified severe protein-calorie malnutrition; E87.2 Acidosis; L97.419 Non-pressure chronic ulcer of right heel and midfoot with unspecified severity; J44.9 Chronic obstructive pulmonary disease, unspecified; E78.5 Hyperlipidemia, unspecified; E03.9 Hypothyroidism, unspecified; Z93.3 Colostomy status; I10 Essential (primary) hypertension; D75.89 Other specified diseases of blood and blood-forming organs; Z86.73 Personal history of transient ischemic attack (TIA), and cerebral infarction without residual deficits; Z93.6 Other artificial openings of urinary tract status; Z87.440 Personal history of urinary (tract) infections; R13.10 Dysphagia, unspecified; T38.0X5A Adverse effect of glucocorticoids and synthetic analogues, initial encounter; E87.5 Hyperkalemia; D64.9 Anemia, unspecified; Z90.6 Acquired absence of other parts of urinary tract; Z85.51 Personal history of malignant neoplasm of bladder; E83.39 Other disorders of phosphorus metabolism; E83.42 Hypomagnesemia; E87.6 Hypokalemia; I70.0 Atherosclerosis of aorta; N18.9 Chronic kidney disease, unspecified; Z66 Do not resuscitate; Z88.2 Allergy status to sulfonamides; Z68.23 Body mass index [BMI] 23.0-23.9, adult; L89.611 Pressure ulcer of right heel, stage 1
CPT/HCPCS: 31720; 36415; 36569; 36600; 71010-TC; 76770-TC; 80048-TC; 80053-TC; 80076-TC; 80202-TC; 81000-TC; 82436-TC; 82553-TC; 82570-TC; 82962-TC; 83605-TC; 83735-TC; 83880; 83935-TC; 84100-TC; 84133-TC; 84300-TC; 84443-TC; 84484-TC; 85025-TC; 85027-TC; 85385-TC; 85610-TC; 85730-TC; 87040-TC; 87070-TC; 87081-TC; 87086-TC; 87400; 92526; 92611-TC; 94002-TC; 94003-TC; 94760-TC; 94799-TC; 99082-TC; A4216; A4606; A6248; A6253; A6402; A6403; A9563; C1769; C9113; J1956; J2060; J2270; J2543; J2920; J2930; J3370; J3475; J3480; J3490; J7030; J7040; J7060; J7070; Z7610

== ENCOUNTER 2016-11-08 13:12 | Inpatient (IN) | payer MEDICARE, BC ==
[~2016-11-08] VITALS: Ht 170.2 cm; Wt 56.7 kg
[~2016-11-08 13:12] MED LIST: ACET-868 NG; ALBUT2 NEB; ASPI81TA2 NG; ATOR10TA NG; BISA10SU8 RC; CALC-108 NG; CLOP75TA2 GT; CRAN3875 NG; IPRA3AMP NEB; LEVO125T8 NG; MAGN400O6 NG; NA P133E RC; ZOLP5TAB2 NG
[2016-11-08] MEDS ORDERED: IV NS 0.9% 1,000 ML ONE ×2 (13:15→15:31)
[2016-11-08] MEDS ORDERED: IV SET PRIMARY 1 EA INFUS.SET MC ONE (13:15)
[2016-11-08] MEDS ORDERED: IV NS 0.9% 1,000 ML IV ONE (13:24)
[2016-11-08 14:35] LABS: BASOPHILS % (AUTO) 0.1 % (0.0-2.0); EOSINOPHILS # (AUTO) 0.1 /CMM (0.0-0.7); EOSINOPHILS % (AUTO) 1.1 % (0.0-6.0); HEMATOCRIT 36 % (33-45); HEMOGLOBIN 11.9 g/dL (11.5-14.8); LYMPHOCYTES % (AUTO) 8.3 % (20.0-44.0); MEAN CORPUSCULAR HEMOGLOBIN 29 PG (26.0-33.0); MEAN CORPUSCULAR HGB CONC 33 g/dl (31.0-36.0); MEAN CORPUSCULAR VOLUME 89 fL (82-100); MONOCYTES % (AUTO) 8.4 % (2.0-12.0); NEUTROPHILS # (AUTO) 10.1 /CMM (1.8-8.9); NEUTROPHILS % (AUTO) 82.1 % (43.0-81.0); PLATELET COUNT (AUTO) 556 /CMM (150-450); RDW COEFFICIENT OF VARIATION 18.7 (11.5-15.0); RED BLOOD CELL COUNT(AUTO) 4.09 MIL/uL (4.0-5.2); WHITE BLOOD COUNT (AUTO) 12.4 K/uL (4.3-11.0)
[2016-11-08 14:59] LABS: ALBUMIN 2.5 g/dL (3.4-5.0); BILIRUBIN,DIRECT 0.1 mg/dL (0.0-0.2); BILIRUBIN,TOTAL 0.3 mg/dL (0.2-1.0); CALCIUM, SERUM 8.2 mg/dL (8.5-10.1); CREATININE 2.4 mg/dL (0.6-1.3); TOTAL PROTEIN, SERUM 6.8 g/dL (6.4-8.2)
[2016-11-08] MEDS ORDERED: IV NS 0.9% 1,000 ML BAG IV ONE (15:30)
[2016-11-08] MEDS ORDERED: PANTOPRAZOLE 40 MG VIAL IV ONE (15:30)
[2016-11-08] MEDS ORDERED: PANTOPRAZOLE 40 MG VIAL ONE (15:31)
[2016-11-08] MEDS ORDERED: IV NS 0.9% 1,000 ML IV PRN (17:02)
[2016-11-08 17:30] VITALS: BP 80/55
[2016-11-08] MEDS ORDERED: ONDANSETRON HCL/PF 4 MG/2 ML VIAL IVP PRN (17:30)
[2016-11-08] MEDS ORDERED: ENOXAPARIN SODIUM 30 MG/0.3 ML DISP.SYRIN SQ SCH (17:30)
[2016-11-08] MEDS ORDERED: Z GUARD REMEDY 2 OZ OINT TP PRN (17:30)
[2016-11-08] MEDS ORDERED: MAG HYDROX/AL HYDROX/SIMETH 30 ML UDC PO PRN (17:30)
[2016-11-08] MEDS ORDERED: ZOLPIDEM TARTRATE 5 MG TABLET PO PRN (17:30)
[2016-11-08] MEDS ORDERED: ACETAMINOPHEN 325 MG TABLET PO PRN (17:30)
[2016-11-08] MEDS ORDERED: BISACODYL SUPP (10 MG) 10 MG/SUPP.RECT SUPP.RECT RC PRN (17:30)
[2016-11-08] MEDS ORDERED: MAGNESIUM HYDROXIDE 30 ML UDC PO PRN (17:30)
[2016-11-08] MEDS ORDERED: PIPERACILLIN /TAZOBACTAM 3.375 G in IV D5W 50 ML IV SCH (18:00)
[2016-11-08] MEDS ORDERED: IV SET PRIMARY PUMP SET 1 EA INFUS.SET MC ONE (18:14)
[2016-11-08] MEDS: IV D5/0.45 NACL 1,000 ML IV SCH (18:19)
[2016-11-08 18:35] VITALS: BP 130/70
[2016-11-08 19:08] LABS: BAND % (MANUAL) 20 % (0.0-5.0); EOSINOPHILS % (MANUAL) 1 % (0-4); LYMPHOCYTES % (MANUAL) 10 % (16-48); MONOCYTES % (MANUAL) 9 % (0-11.0); NEUTROPHILS % (MANUAL) 60 (42-76)
[2016-11-08 20:00] VITALS: BP_SYST 116; BP_DIAS 38; BP_DIAS 58
[2016-11-08] MEDS: ALBUTEROL FS 2.5 MG/3 ML VIAL.NEB NEB SCH ×2 (20:07→23:28)
[2016-11-08 20:33] LABS: CALCIUM, SERUM 7.5 mg/dL (8.5-10.1); CREATININE 2.1 mg/dL (0.6-1.3); POTASSIUM 4.6 mmol/L (3.5-5.1)
[2016-11-08] MEDS: PIPERACILLIN /TAZOBACTAM 2.25 G in IV D5W 50 ML IV SCH (20:37)
[2016-11-08] MEDS: HEPARIN SODIUM, PORCINE 5000 UNITS/1 ML VIAL SQ SCH (20:39)
[2016-11-08] MEDS ORDERED: SECONDARY IV SET 1 EA INFUS.SET MC ONE (20:45)
[2016-11-08] MEDS: ATORVASTATIN 10 MG TABLET NG SCH (21:00)
[2016-11-09] VITALS (7 sets, daily range): BP systolic 80–120; BP diastolic 27–56
[2016-11-09] MEDS: ALBUTEROL FS 2.5 MG/3 ML VIAL.NEB NEB SCH ×6 (03:30→23:31)
[2016-11-09] MEDS: PIPERACILLIN /TAZOBACTAM 2.25 G in IV D5W 50 ML IV SCH ×3 (04:58→20:27)
[2016-11-09] MEDS: IV D5/0.45 NACL 1,000 ML IV SCH ×2 (06:50→20:27)
[2016-11-09 06:55] LABS: APPEARANCE,URINE SL CLOUDY (CLEAR); BILIRUBIN,URINE NEGATIVE (NEGATIVE); BLOOD, URINE TRACE Ery/uL (NEGATIVE); COLOR,URINE YELLOW (YELLOW); KETONES,URINE NEGATIVE (NEGATIVE); LEUKOCYTE ESTERASE ,URINE 1+ (NEGATIVE); NITRITE, URINE NEGATIVE (NEGATIVE); PH,URINE 5.5 (5.0-8.0); PROTEIN,URINE TRACE mg/dl (NEGATIVE); UGLUCOSE NEGATIVE (NEGATIVE); UROBILINOGEN,URINE 0.2 EU/dL (0.2)
[2016-11-09 07:09] LABS: BASOPHILS # (AUTO) 0.1 /CMM (0.0-0.2); BASOPHILS % (AUTO) 0.4 % (0.0-2.0); EOSINOPHILS # (AUTO) 0.8 /CMM (0.0-0.7); EOSINOPHILS % (AUTO) 5.6 % (0.0-6.0); HEMATOCRIT 29 % (33-45); HEMOGLOBIN 9.6 g/dL (11.5-14.8); LYMPHOCYTES % (AUTO) 14.5 % (20.0-44.0); MEAN CORPUSCULAR HEMOGLOBIN 29 PG (26.0-33.0); MEAN CORPUSCULAR HGB CONC 33 g/dl (31.0-36.0); MEAN CORPUSCULAR VOLUME 89 fL (82-100); MONOCYTES # (AUTO) 0.7 /CMM (0.1-1.30); MONOCYTES % (AUTO) 5.4 % (2.0-12.0); NEUTROPHILS # (AUTO) 10.2 /CMM (1.8-8.9); NEUTROPHILS % (AUTO) 74.1 % (43.0-81.0); PLATELET COUNT (AUTO) 393 /CMM (150-450); RDW COEFFICIENT OF VARIATION 18.7 (11.5-15.0); RED BLOOD CELL COUNT(AUTO) 3.29 MIL/uL (4.0-5.2); WHITE BLOOD COUNT (AUTO) 13.8 K/uL (4.3-11.0)
[2016-11-09 07:14] LABS: BACTERIA,URINE Few /HPF (None Seen); HYALINE CASTS, URINE Rare /LPF (None Seen); RBC,URINE 0-2 /HPF (0-2)
[2016-11-09 07:15] LABS: SQUAMOUS EPITHELIAL CELL,UR Rare /HPF (None Seen)
[2016-11-09 07:32] LABS: CALCIUM, SERUM 7.7 mg/dL (8.5-10.1); CREATININE 1.9 mg/dL (0.6-1.3); MAGNESIUM 1.8 mg/dL (1.8-2.4); PHOSPHORUS 3.7 mg/dL (2.5-4.9); POTASSIUM 4.8 mmol/L (3.5-5.1)
[2016-11-09] MEDS: ASPIRIN 81 MG TAB.CHEW NG SCH (08:58)
[2016-11-09] MEDS: LEVOTHYROXINE SODIUM 125 MCG TABLET NG SCH (08:58)
[2016-11-09] MEDS: PANTOPRAZOLE 40 MG TABLET.DR PO SCH (08:59)
[2016-11-09] MEDS: CLOPIDOGREL BISULFATE 75 MG TABLET GT SCH (08:59)
[2016-11-09] MEDS: HEPARIN SODIUM, PORCINE 5000 UNITS/1 ML VIAL SQ SCH ×2 (09:00→20:33)
[2016-11-09] MEDS: Z GUARD REMEDY 2 OZ OINT TP SCH (09:00)
[2016-11-09 10:51] LABS: BAND % (MANUAL) 4 % (0.0-5.0); EOSINOPHILS % (MANUAL) 8 % (0-4); LYMPHOCYTES % (MANUAL) 24 % (16-48); MONOCYTES % (MANUAL) 6 % (0-11.0); NEUTROPHILS % (MANUAL) 58 (42-76)
[2016-11-09] MEDS ORDERED: IV D5/0.45 NACL 1,000 ML IV ONE (20:19)
[2016-11-09] MEDS: ATORVASTATIN 10 MG TABLET NG SCH (22:10)
[2016-11-10] VITALS: BP 100/32
[2016-11-10] MEDS: ALBUTEROL FS 2.5 MG/3 ML VIAL.NEB NEB SCH ×6 (03:43→23:30)
[2016-11-10 04:00] VITALS: BP 114/57
[2016-11-10] MEDS: PIPERACILLIN /TAZOBACTAM 2.25 G in IV D5W 50 ML IV SCH ×3 (06:11→20:33)
[2016-11-10 08:00] VITALS: BP 97/99
[2016-11-10] MEDS: ASPIRIN 81 MG TAB.CHEW NG SCH (08:44)
[2016-11-10] MEDS: CLOPIDOGREL BISULFATE 75 MG TABLET GT SCH (08:44)
[2016-11-10] MEDS: LEVOTHYROXINE SODIUM 125 MCG TABLET NG SCH (08:44)
[2016-11-10] MEDS: PANTOPRAZOLE 40 MG TABLET.DR PO SCH (08:44)
[2016-11-10] MEDS: Z GUARD REMEDY 2 OZ OINT TP SCH (08:46)
[2016-11-10] MEDS: HEPARIN SODIUM, PORCINE 5000 UNITS/1 ML VIAL SQ SCH ×2 (08:47→21:00)
[2016-11-10] MEDS: IV D5/0.45 NACL 1,000 ML IV SCH ×2 (08:51→23:53)
[2016-11-10 10:17] LABS: APPEARANCE,URINE CLEAR (CLEAR); BILIRUBIN,URINE NEGATIVE (NEGATIVE); BLOOD, URINE TRACE Ery/uL (NEGATIVE); COLOR,URINE YELLOW (YELLOW); KETONES,URINE NEGATIVE (NEGATIVE); LEUKOCYTE ESTERASE ,URINE NEGATIVE (NEGATIVE); NITRITE, URINE NEGATIVE (NEGATIVE); PH,URINE 6.5 (5.0-8.0); PROTEIN,URINE TRACE mg/dl (NEGATIVE); UGLUCOSE NEGATIVE (NEGATIVE); UROBILINOGEN,URINE 0.2 EU/dL (0.2)
[2016-11-10 10:23] LABS: CREATININE, URINE 37.3 MG/DL (30.0-125.0)
[2016-11-10 10:31] LABS: ABG BASE EXCESS -7.7 mmol/L; ABG OXYGEN SATURATION 93.1 % (92.0-98.5); ABG PCO2 27.5 mmHg (35.0-45.0); ABG PH 7.389 (7.350-7.450); ABG PO2 73.3 mmHg (75.0-100.0); AaDO2 43.5 mmHg; COHb 0.5 % (0.5-1.5); O2Hb 91.7 % (94.0-97.0); SITE, ABG Left Radial; VENT MODE, BG ROOM AIR
[2016-11-10 10:46] LABS: BACTERIA,URINE Rare /HPF (None Seen); SQUAMOUS EPITHELIAL CELL,UR Rare /HPF (None Seen)
[2016-11-10 12:00] VITALS: BP 94/49
[2016-11-10 12:07] LABS: EOSINOPHIL,URINE NONE SEEN
[2016-11-10 16:00] VITALS: BP 110/48
[2016-11-10 20:00] VITALS: BP_SYST 101; BP_SYST 109; BP_DIAS 34; BP_DIAS 37
[2016-11-10] MEDS: ATORVASTATIN 10 MG TABLET PO SCH (21:29)
[2016-11-11] VITALS: BP 101/34
[2016-11-11] MEDS: ALBUTEROL FS 2.5 MG/3 ML VIAL.NEB NEB SCH ×6 (03:16→23:28)
[2016-11-11 04:00] VITALS: BP 114/40
[2016-11-11] MEDS: PIPERACILLIN /TAZOBACTAM 2.25 G in IV D5W 50 ML IV SCH ×2 (04:55→12:26)
[2016-11-11 07:33] LABS: BASOPHILS % (AUTO) 0.1 % (0.0-2.0); EOSINOPHILS # (AUTO) 0.8 /CMM (0.0-0.7); EOSINOPHILS % (AUTO) 6.1 % (0.0-6.0); HEMATOCRIT 27 % (33-45); HEMOGLOBIN 9.1 g/dL (11.5-14.8); LYMPHOCYTES # (AUTO) 1.4 /CMM (0.8-4.8); LYMPHOCYTES % (AUTO) 10.4 % (20.0-44.0); MEAN CORPUSCULAR HEMOGLOBIN 29 PG (26.0-33.0); MEAN CORPUSCULAR HGB CONC 34 g/dl (31.0-36.0); MEAN CORPUSCULAR VOLUME 88 fL (82-100); MONOCYTES # (AUTO) 0.8 /CMM (0.1-1.30); MONOCYTES % (AUTO) 5.6 % (2.0-12.0); NEUTROPHILS # (AUTO) 10.7 /CMM (1.8-8.9); NEUTROPHILS % (AUTO) 77.8 % (43.0-81.0); PLATELET COUNT (AUTO) 341 /CMM (150-450); RDW COEFFICIENT OF VARIATION 18.1 (11.5-15.0); WHITE BLOOD COUNT (AUTO) 13.7 K/uL (4.3-11.0)
[2016-11-11 07:43] LABS: ALBUMIN 1.9 g/dL (3.4-5.0); BILIRUBIN,TOTAL 0.3 mg/dL (0.2-1.0); CALCIUM, SERUM 7.6 mg/dL (8.5-10.1); CREATININE 1.7 mg/dL (0.6-1.3); MAGNESIUM 1.4 mg/dL (1.8-2.4); POTASSIUM 3.8 mmol/L (3.5-5.1); TOTAL PROTEIN, SERUM 5.4 g/dL (6.4-8.2)
[2016-11-11 08:00] VITALS: BP 110/47
[2016-11-11] MEDS: PANTOPRAZOLE 40 MG TABLET.DR PO SCH (09:52)
[2016-11-11] MEDS: LEVOTHYROXINE SODIUM 125 MCG TABLET PO SCH (09:52)
[2016-11-11] MEDS: CLOPIDOGREL BISULFATE 75 MG TABLET PO SCH (09:52)
[2016-11-11] MEDS: ASPIRIN 81 MG TAB.CHEW PO SCH (09:53)
[2016-11-11] MEDS: HEPARIN SODIUM, PORCINE 5000 UNITS/1 ML VIAL SQ SCH ×2 (09:54→21:10)
[2016-11-11] MEDS: Z GUARD REMEDY 2 OZ OINT TP SCH (09:56)
[2016-11-11] MEDS ORDERED: SECONDARY IV SET 1 EA INFUS.SET MC ONE ×2 (12:21→14:06)
[2016-11-11] MEDS: IV D5/0.45 NACL 1,000 ML IV SCH (12:26)
[2016-11-11] MEDS: Magnesium 1GM/D5W 100ML PREMIX 100 ML IV SCH ×3 (14:32→17:36)
[2016-11-11] MEDS: HYDROCODONE/APAP 5/325MG 1 EACH TABLET PO PRN (15:55)
[2016-11-11 16:00] VITALS: BP 109/42
[2016-11-11] MEDS ORDERED: LORAZEPAM INJ 2 MG/ML VIAL IV PRN (17:00)
[2016-11-11 20:00] VITALS: BP 111/39
[2016-11-11] MEDS: LINEZOLID 600 MG TABLET PO SCH (21:04)
[2016-11-11] MEDS: ATORVASTATIN 10 MG TABLET PO SCH (21:20)
[2016-11-12] MEDS: ALBUTEROL FS 2.5 MG/3 ML VIAL.NEB NEB SCH ×6 (03:43→22:58)
[2016-11-12 04:00] VITALS: BP 111/44
[2016-11-12 06:50] LABS: CREATININE 1.3 mg/dL (0.6-1.3); MAGNESIUM 2.3 mg/dL (1.8-2.4); POTASSIUM 3.5 mmol/L (3.5-5.1)
[2016-11-12 08:00] VITALS: BP 123/43
[2016-11-12] MEDS: Z GUARD REMEDY 2 OZ OINT TP SCH (09:00)
[2016-11-12] MEDS ORDERED: IV D5/0.45 NACL 1,000 ML IV ONE (09:24)
[2016-11-12] MEDS: ATORVASTATIN 10 MG TABLET PO SCH ×2 (09:33→21:24)
[2016-11-12] MEDS: ASPIRIN 81 MG TAB.CHEW PO SCH (09:33)
[2016-11-12] MEDS: LEVOTHYROXINE SODIUM 125 MCG TABLET PO SCH (09:33)
[2016-11-12] MEDS: LINEZOLID 600 MG TABLET PO SCH ×2 (09:34→21:24)
[2016-11-12] MEDS: PANTOPRAZOLE 40 MG TABLET.DR PO SCH (09:34)
[2016-11-12] MEDS: HEPARIN SODIUM, PORCINE 5000 UNITS/1 ML VIAL SQ SCH ×2 (09:35→21:25)
[2016-11-12] MEDS: CLOPIDOGREL BISULFATE 75 MG TABLET PO SCH (09:47)
[2016-11-12 12:24] LABS: PTH, INTACT 32 pg/mL (15-65)
[2016-11-12 13:20] LABS: *SPE A/G RATIO 0.9 (0.7-1.7); *SPE ALBUMIN 2.3 g/dL (2.9-4.4); *SPE ALPHA-1-GLOBULIN 0.4 g/dL (0.0-0.4); *SPE ALPHA-2-GLOBULIN 0.8 g/dL (0.4-1.0); *SPE BETA GLOBULIN 0.7 g/dL (0.7-1.3); *SPE GLOBULIN, TOTAL 2.7 g/dL (2.2-3.9); *SPE M-SPIKE Not Observed g/dL (Not Observed); *SPEGAMMA GLOBULIN 0.8 g/dL (0.4-1.8)
[2016-11-12] MEDS: IV D5/0.45 NACL 1,000 ML IV SCH ×2 (14:50→19:26)
[2016-11-12 16:00] VITALS: BP 123/43
[2016-11-12 20:00] VITALS: BP 105/39
[2016-11-12] MEDS: HYDROCODONE/APAP 5/325MG 1 EACH TABLET PO PRN (21:24)
[2016-11-13] MEDS: ALBUTEROL FS 2.5 MG/3 ML VIAL.NEB NEB SCH ×6 (02:57→23:42)
[2016-11-13 04:00] VITALS: BP 126/72
[2016-11-13 08:00] VITALS: BP 116/46
[2016-11-13] MEDS: LEVOTHYROXINE SODIUM 125 MCG TABLET PO SCH (08:30)
[2016-11-13] MEDS: ASPIRIN 81 MG TAB.CHEW PO SCH (08:30)
[2016-11-13] MEDS: PANTOPRAZOLE 40 MG TABLET.DR PO SCH (08:30)
[2016-11-13] MEDS: LINEZOLID 600 MG TABLET PO SCH ×2 (08:30→21:34)
[2016-11-13] MEDS: HEPARIN SODIUM, PORCINE 5000 UNITS/1 ML VIAL SQ SCH ×2 (08:36→21:34)
[2016-11-13] MEDS: CLOPIDOGREL BISULFATE 75 MG TABLET PO SCH (09:00)
[2016-11-13] MEDS: Z GUARD REMEDY 2 OZ OINT TP SCH (09:00)
[2016-11-13 12:00] VITALS: BP 116/46
[2016-11-13] MEDS ORDERED: IV NS 0.9% 1,000 ML IV PRN (13:30)
[2016-11-13] MEDS ORDERED: IV D5/0.45 NACL 1,000 ML IV ONE (15:04)
[2016-11-13 16:00] VITALS: BP 138/33
[2016-11-13] MEDS: IV D5/0.45 NACL 1,000 ML IV PRN (17:23)
[2016-11-13 20:00] VITALS: BP 103/70
[2016-11-13] MEDS: ATORVASTATIN 10 MG TABLET PO SCH (21:34)
[2016-11-14] MEDS: ALBUTEROL FS 2.5 MG/3 ML VIAL.NEB NEB SCH ×6 (03:22→23:50)
[2016-11-14] MEDS: IV D5/0.45 NACL 1,000 ML IV PRN (03:25)
[2016-11-14 04:00] VITALS: BP 108/62
[2016-11-14 06:33] LABS: BASOPHILS % (AUTO) 0.3 % (0.0-2.0); EOSINOPHILS # (AUTO) 0.4 /CMM (0.0-0.7); EOSINOPHILS % (AUTO) 2.4 % (0.0-6.0); HEMATOCRIT 29 % (33-45); HEMOGLOBIN 9.5 g/dL (11.5-14.8); LYMPHOCYTES % (AUTO) 12.9 % (20.0-44.0); MEAN CORPUSCULAR HEMOGLOBIN 29 PG (26.0-33.0); MEAN CORPUSCULAR HGB CONC 34 g/dl (31.0-36.0); MEAN CORPUSCULAR VOLUME 88 fL (82-100); MONOCYTES # (AUTO) 1.7 /CMM (0.1-1.30); MONOCYTES % (AUTO) 11.5 % (2.0-12.0); NEUTROPHILS # (AUTO) 11.1 /CMM (1.8-8.9); NEUTROPHILS % (AUTO) 72.9 % (43.0-81.0); PLATELET COUNT (AUTO) 395 /CMM (150-450); RDW COEFFICIENT OF VARIATION 17.6 (11.5-15.0); RED BLOOD CELL COUNT(AUTO) 3.24 MIL/uL (4.0-5.2); WHITE BLOOD COUNT (AUTO) 15.2 K/uL (4.3-11.0)
[2016-11-14 06:51] LABS: CALCIUM, SERUM 8.2 mg/dL (8.5-10.1); CREATININE 1.1 mg/dL (0.6-1.3); POTASSIUM 3.4 mmol/L (3.5-5.1)
[2016-11-14 08:00] VITALS: BP 126/54
[2016-11-14] MEDS: Z GUARD REMEDY 2 OZ OINT TP SCH (09:00)
[2016-11-14] MEDS: LEVOTHYROXINE SODIUM 125 MCG TABLET PO SCH (09:03)
[2016-11-14] MEDS: HEPARIN SODIUM, PORCINE 5000 UNITS/1 ML VIAL SQ SCH ×2 (09:03→21:37)
[2016-11-14] MEDS: ASPIRIN 81 MG TAB.CHEW PO SCH (09:03)
[2016-11-14] MEDS: CLOPIDOGREL BISULFATE 75 MG TABLET PO SCH (09:04)
[2016-11-14] MEDS: PANTOPRAZOLE 40 MG TABLET.DR PO SCH (09:11)
[2016-11-14] MEDS: LINEZOLID 600 MG TABLET PO SCH ×2 (09:11→21:35)
[2016-11-14] MEDS: POTASSIUM CHLORIDE 20 MEQ TAB.PRT.SR PO SCH (09:11)
[2016-11-14] MEDS ORDERED: POTASSIUM CHLORIDE 10 MEQ TABLET.SA PO ONE (11:30)
[2016-11-14 14:34] VITALS: BP 126/54
[2016-11-14 16:00] VITALS: BP 105/39
[2016-11-14 20:00] VITALS: BP 121/70
[2016-11-14] MEDS: ATORVASTATIN 10 MG TABLET PO SCH (21:35)
[2016-11-15] MEDS: IV D5/0.45 NACL 1,000 ML IV PRN (00:51)
[2016-11-15] MEDS: ALBUTEROL FS 2.5 MG/3 ML VIAL.NEB NEB SCH ×4 (03:30→14:52)
[2016-11-15 04:00] VITALS: BP_SYST 125; BP_DIAS 37; BP_DIAS 46
[2016-11-15] MEDS: PANTOPRAZOLE 40 MG TABLET.DR PO SCH (06:23)
[2016-11-15 06:51] LABS: BASOPHILS % (AUTO) 0.4 % (0.0-2.0); EOSINOPHILS # (AUTO) 0.4 /CMM (0.0-0.7); EOSINOPHILS % (AUTO) 3.5 % (0.0-6.0); HEMATOCRIT 28 % (33-45); HEMOGLOBIN 9.3 g/dL (11.5-14.8); LYMPHOCYTES # (AUTO) 1.6 /CMM (0.8-4.8); LYMPHOCYTES % (AUTO) 14.4 % (20.0-44.0); MEAN CORPUSCULAR HEMOGLOBIN 29 PG (26.0-33.0); MEAN CORPUSCULAR HGB CONC 33 g/dl (31.0-36.0); MEAN CORPUSCULAR VOLUME 87 fL (82-100); MONOCYTES # (AUTO) 1.1 /CMM (0.1-1.30); MONOCYTES % (AUTO) 10.4 % (2.0-12.0); NEUTROPHILS # (AUTO) 7.8 /CMM (1.8-8.9); NEUTROPHILS % (AUTO) 71.3 % (43.0-81.0); PLATELET COUNT (AUTO) 402 /CMM (150-450); RDW COEFFICIENT OF VARIATION 17.3 (11.5-15.0); RED BLOOD CELL COUNT(AUTO) 3.21 MIL/uL (4.0-5.2); WHITE BLOOD COUNT (AUTO) 10.9 K/uL (4.3-11.0)
[2016-11-15 07:19] LABS: CALCIUM, SERUM 8.2 mg/dL (8.5-10.1); CREATININE 1.1 mg/dL (0.6-1.3); POTASSIUM 3.4 mmol/L (3.5-5.1)
[2016-11-15 08:00] VITALS: BP 142/57
[2016-11-15 08:14] VITALS: BP 142/57
[2016-11-15] MEDS: CLOPIDOGREL BISULFATE 75 MG TABLET PO SCH (09:28)
[2016-11-15] MEDS: ASPIRIN 81 MG TAB.CHEW PO SCH (09:28)
[2016-11-15] MEDS: LINEZOLID 600 MG TABLET PO SCH (09:29)
[2016-11-15] MEDS: POTASSIUM CHLORIDE 20 MEQ TAB.PRT.SR PO SCH (09:29)
[2016-11-15] MEDS: HEPARIN SODIUM, PORCINE 5000 UNITS/1 ML VIAL SQ SCH (09:51)
[2016-11-15] MEDS: LEVOTHYROXINE SODIUM 125 MCG TABLET PO SCH (09:54)
[2016-11-15] MEDS: Z GUARD REMEDY 2 OZ OINT TP SCH (09:55)
[2016-11-15 12:00] VITALS: BP 130/60
[2016-11-15] MEDS ORDERED: POTASSIUM CHLORIDE 20 MEQ TAB.PRT.SR PO SCH (12:30)
[2016-11-15 15:48] VITALS: BP 124/45
== END 2016-11-15 16:30 | DRG 871 ==
LOC: ER 13:14 → TELE1 13:30 → MEDSG1 11-11 09:09
PROVIDERS: ADMIT Internal Medicine; ATTEND Internal Medicine
PROC: 05H533Z Insertion of Infusion Device into Right Subclavian Vein, Percutaneous Approach (ICD-10-PCS; principal; 2016-11-08)
DX: A41.9 Sepsis, unspecified organism (principal); N17.0 Acute kidney failure with tubular necrosis; G93.41 Metabolic encephalopathy; E43 Unspecified severe protein-calorie malnutrition; E87.0 Hyperosmolality and hypernatremia; N39.0 Urinary tract infection, site not specified; E87.2 Acidosis; E03.9 Hypothyroidism, unspecified; E78.5 Hyperlipidemia, unspecified; J44.9 Chronic obstructive pulmonary disease, unspecified; I12.9 Hypertensive chronic kidney disease with stage 1 through stage 4 chronic kidney disease, or unspecified chronic kidney disease; N18.9 Chronic kidney disease, unspecified; B95.2 Enterococcus as the cause of diseases classified elsewhere; E86.0 Dehydration; D75.89 Other specified diseases of blood and blood-forming organs; D63.8 Anemia in other chronic diseases classified elsewhere; Z90.6 Acquired absence of other parts of urinary tract; Z93.6 Other artificial openings of urinary tract status; Z85.51 Personal history of malignant neoplasm of bladder; K21.9 Gastro-esophageal reflux disease without esophagitis; Z87.440 Personal history of urinary (tract) infections; F03.90 Unspecified dementia, unspecified severity, without behavioral disturbance, psychotic disturbance, mood disturbance, and anxiety; F09 Unspecified mental disorder due to known physiological condition; L98.8 Other specified disorders of the skin and subcutaneous tissue; S40.022A Contusion of left upper arm, initial encounter; S40.021A Contusion of right upper arm, initial encounter; X58.XXXA Exposure to other specified factors, initial encounter; Y93.9 Activity, unspecified; Y92.129 Unspecified place in nursing home as the place of occurrence of the external cause; E88.09 Other disorders of plasma-protein metabolism, not elsewhere classified; Z68.20 Body mass index [BMI] 20.0-20.9, adult; E55.9 Vitamin D deficiency, unspecified; R65.20 Severe sepsis without septic shock; Z16.21 Resistance to vancomycin; K29.70 Gastritis, unspecified, without bleeding; R13.10 Dysphagia, unspecified
CPT/HCPCS: 36415; 36569; 36600; 70450-TC; 71010-TC; 76770-TC; 80048-TC; 80053-TC; 80061-TC; 80076-TC; 81000-TC; 82550-TC; 82570-TC; 83605-TC; 83735-TC; 83935-TC; 83970; 84100-TC; 84155; 84155-TC; 84165; 84300-TC; 85025-TC; 86850-TC; 87040-TC; 87081-TC; 87086-TC; 87186-TC; 94762-TC; 94799-TC; 97001-TC; 97112-TC; 97116-TC; 97530-TC; A4606; A6402; C9113; J1644; J2543; J3475; J3490; J7030; J7060; Z7610